=== PATIENT | female | born 1940 | race Caucasian/White ===

== ENCOUNTER 2018-08-29 19:49 | Emergency (ER) | payer MEDICARE, OTHER ==
[~2018-08-29] VITALS: Ht 162.6 cm; Wt 65.9 kg
[~2018-08-29 19:49] MED LIST: ASCO500C15 PO; ASPI-1264 PO; CHOL200052 PO; FERR325T32 PO; PARO40TA PO
[2018-08-29] MEDS ORDERED: CIPR-230 PO (20:10)
[2018-08-29] MEDS ORDERED: METR500T PO (20:10)
[2018-08-29] MEDS ORDERED: PER10325T PO (20:10)
[2018-08-29 20:13] LABS: CLARITY,URINE CLEAR (Clear); COLOR,URINE YELLOW (Yellow); GLUCOSE, URINE NEGATIVE (Neg); KETONES,URINE NEGATIVE (Neg); LEUKOCYTE ESTERASE ,URINE NEGATIVE (Neg); NITRITES, URINE NEGATIVE (Neg); OCCULT BLOOD,URINE NEGATIVE (Neg); PH,URINE 8.5 (4.8-8.0); PROTEIN,URINE NEGATIVE (Neg); UA COLLECTION TYPE VOIDED; UROBILINOGEN,URINE 0.2 E.U/dL (0.2-1.0)
[2018-08-29] MEDS ORDERED: normal saline 1000ML IV soln IV ONE (20:20)
[2018-08-29 21:23] LABS: ALANINE AMINOTRANSFERASE 18 U/L (12-78); ALBUMIN 2.7 G/DL (3.4-5.0); ALBUMIN/GLOBULIN RATIO 0.8 (1.1-1.5); ALKALINE PHOSPHATASE 72 IU/L (46-116); ANION GAP 11 (8-16); ASPARTATE AMINO TRANSFERASE 22 U/L (10-37); BILIRUBIN,TOTAL 0.6 MG/DL (0.1-1.0); BLOOD UREA NITROGEN 9 MG/DL (7-18); BUN/CREATININE RATIO 15.3 (6.6-38.0); CALCIUM 8.1 MG/DL (8.5-10.1); CHLORIDE 104 MMOL/L (99-107); CREATININE 0.59 MG/DL (0.40-0.90); GLUCOSE 127 MG/DL (70-104); POTASSIUM 3.7 MMOL/L (3.5-5.1); SODIUM 139 MMOL/L (135-145); TOTAL CARBON DIOXIDE 23.8 MMOL/L (24-32); TOTAL PROTEIN 6.3 G/DL (6.4-8.2); eGFR > 90 ML/MIN
[2018-08-29 21:24] VITALS: BP 117/78
[2018-08-29 21:27] LABS: MAGNESIUM 2.1 MG/DL (1.5-2.4); TROPONIN I < 0.04 NG/ML (0.0-0.05)
[2018-08-29 21:36] LABS: BASOPHILS % (AUTO) 0.1 % (0-1); EOSINOPHILS # (AUTO) 0.1 X10'3 (0-0.9); EOSINOPHILS % (AUTO) 0.9 % (0-6); HEMATOCRIT 32.1 % (35.0-45.0); HEMOGLOBIN 10.8 g/dl (12.0-16.0); LYMPHOCYTES % (AUTO) 10.5 % (21-51); MEAN CORPUSCULAR HEMOGLOBIN 31.6 PG (27.0-31.0); MEAN CORPUSCULAR HGB CONC 33.6 % (33.0-36.5); MEAN CORPUSCULAR VOLUME 93.8 FL (78-98); MEAN PLATELET VOLUME 8.2 FL (7.4-10.4); MONOCYTES # (AUTO) 0.7 X10'3 (0-0.9); MONOCYTES % (AUTO) 7.8 % (2-12); NEUTROPHILS # (AUTO) 7.6 X10'3 (1.8-7.7); NEUTROPHILS % (AUTO) 80.7 % (42-75); PLATELET COUNT 269 X10'3 (140-440); RED BLOOD COUNT 3.42 X10'6 (4.20-5.60); RED CELL DISTRIBUTION WIDTH 13.4 % (11.5-14.5); WHITE BLOOD COUNT 9.4 X10'3 (4.5-11.0)
[2018-08-29 21:48] LABS: INR 1.2 INR; PARTIAL THROMBOPLASTIN TIME 33 SECONDS (22-32); PROTHROMBIN TIME 12.4 SECONDS (9.0-12.0)
== END 2018-08-29 22:08 | disposition home or self-care (01) ==
LOC: ER 19:50
DX: R30.0 Dysuria (principal); R39.15 Urgency of urination; R35.0 Frequency of micturition; R11.0 Nausea; R41.0 Disorientation, unspecified; G89.29 Other chronic pain; Z98.890 Other specified postprocedural states; Z88.1 Allergy status to other antibiotic agents; Z88.8 Allergy status to other drugs, medicaments and biological substances; Z79.82 Long term (current) use of aspirin; Z79.2 Long term (current) use of antibiotics; Z79.899 Other long term (current) drug therapy
CPT/HCPCS: 36415; 71045; 80053; 81003; 83605; 83735; 84145; 84484; 85025; 85610; 85730; 87040; 93005; 99284; J7030

== ENCOUNTER 2018-10-07 11:50 | Inpatient (IN) | payer MEDICARE, OTHER | END 2018-10-09 15:30 | disposition home or self-care (01) | LOC: ER 11:50 → SUR 3N 10-08 11:20 → ED HOLD 16:00 → SUR 3N 16:55 | DX: K57.32 Diverticulitis of large intestine without perforation or abscess without bleeding (principal); K76.0 Fatty (change of) liver, not elsewhere classified ==

== ENCOUNTER 2018-10-13 10:44 | Outpatient (CLI) | payer MEDICARE, OTHER ==
[~2018-10-13 10:44] MED LIST changes: +ASPI-107 PO; -ASPI-1264 PO; +LEVO500T2 PO; +METR-159 PO; +MULT-1085 PO
[2018-10-13] MEDS ORDERED: VITC500T PO (13:49)
[2018-10-13] MEDS ORDERED: RIVA15TA PO (14:23)
== END 2018-10-13 23:59 | disposition home or self-care (01) ==
LOC: VAS 10:44
PROVIDERS: ATTEND Specialist
DX: R60.0 Localized edema (principal); Z96.643 Presence of artificial hip joint, bilateral; Z88.8 Allergy status to other drugs, medicaments and biological substances; Z88.1 Allergy status to other antibiotic agents
CPT/HCPCS: 93971

== ENCOUNTER 2018-10-13 11:37 | Emergency (ER) | payer MEDICARE, OTHER ==
[~2018-10-13] VITALS: Ht 162.6 cm; Wt 66.8 kg
[2018-10-13 12:47] LABS: BASOPHILS % (AUTO) 0.5 % (0-1); EOSINOPHILS # (AUTO) 0.3 X10'3 (0-0.9); HEMATOCRIT 36.6 % (35.0-45.0); HEMOGLOBIN 12.1 g/dl (12.0-16.0); LYMPHOCYTES # (AUTO) 1.9 X10'3 (1.1-4.8); MEAN CORPUSCULAR HEMOGLOBIN 31.2 PG (27.0-31.0); MEAN CORPUSCULAR VOLUME 94.3 FL (78-98); MEAN PLATELET VOLUME 7.9 FL (7.4-10.4); MONOCYTES # (AUTO) 0.7 X10'3 (0-0.9); MONOCYTES % (AUTO) 7.8 % (2-12); NEUTROPHILS # (AUTO) 5.7 X10'3 (1.8-7.7); NEUTROPHILS % (AUTO) 66.7 % (42-75); PLATELET COUNT 340 X10'3 (140-440); RED BLOOD COUNT 3.88 X10'6 (4.20-5.60); RED CELL DISTRIBUTION WIDTH 14.3 % (11.5-14.5); WHITE BLOOD COUNT 8.5 X10'3 (4.5-11.0)
[2018-10-13 13:03] LABS: ALANINE AMINOTRANSFERASE 21 U/L (12-78); ALBUMIN 3.2 G/DL (3.4-5.0); ALBUMIN/GLOBULIN RATIO 0.9 (1.1-1.5); ALKALINE PHOSPHATASE 79 IU/L (46-116); ANION GAP 7 (8-16); ASPARTATE AMINO TRANSFERASE 18 U/L (10-37); BILIRUBIN,TOTAL 0.2 MG/DL (0.1-1.0); BLOOD UREA NITROGEN 22 MG/DL (7-18); BUN/CREATININE RATIO 28.2 (6.6-38.0); CALCIUM 9.2 MG/DL (8.5-10.1); CHLORIDE 102 MMOL/L (99-107); CREATININE 0.78 MG/DL (0.40-0.90); GLUCOSE 121 MG/DL (70-104); POTASSIUM 4.3 MMOL/L (3.5-5.1); SODIUM 140 MMOL/L (135-145); TOTAL CARBON DIOXIDE 31.2 MMOL/L (24-32); TOTAL PROTEIN 6.7 G/DL (6.4-8.2); eGFR 72 ML/MIN
[2018-10-13 13:17] LABS: PARTIAL THROMBOPLASTIN TIME 26 SECONDS (22-32); PROTHROMBIN TIME 10.6 SECONDS (9.0-12.0)
--- NOTE | 2018-10-13 13:20 | NUR ---
PATIENT UP TO BSC: VOIDED ABOUT 300 ML URINE AND LARGE SOFT FORMED BROWN BM
[2018-10-13] MEDS ORDERED: VITC500T PO (13:49)
[2018-10-13 14:00] VITALS: BP 127/52
[2018-10-13] MEDS ORDERED: RIVA15TA PO (14:23)
== END 2018-10-13 18:05 | disposition home or self-care (01) ==
LOC: ER 11:38
DX: I82.491 Acute embolism and thrombosis of other specified deep vein of right lower extremity (principal); G89.29 Other chronic pain; M19.90 Unspecified osteoarthritis, unspecified site; Z88.5 Allergy status to narcotic agent; Z88.1 Allergy status to other antibiotic agents; Z88.8 Allergy status to other drugs, medicaments and biological substances; Z79.82 Long term (current) use of aspirin; Z79.899 Other long term (current) drug therapy
CPT/HCPCS: 36415; 80053; 85025; 85610; 85730; 99283

== ENCOUNTER 2018-12-26 09:55 | Outpatient (CLI) | payer MEDICARE, OTHER ==
[~2018-12-26 09:55] MED LIST changes: -ASCO500C15 PO; -LEVO500T2 PO; -METR-159 PO; +RIVA15TA PO; +VITC500T PO
== END 2018-12-26 23:59 | disposition home or self-care (01) ==
LOC: VAS 09:55
PROVIDERS: ATTEND Specialist
DX: I82.409 Acute embolism and thrombosis of unspecified deep veins of unspecified lower extremity (principal); Z86.718 Personal history of other venous thrombosis and embolism; Z96.643 Presence of artificial hip joint, bilateral; Z96.651 Presence of right artificial knee joint; Z79.82 Long term (current) use of aspirin
CPT/HCPCS: 93970

== ENCOUNTER 2019-02-27 13:30 | Outpatient (CLI) | payer MEDICARE, OTHER | END 2019-02-27 23:59 | disposition home or self-care (01) | LOC: VAS 13:30 | PROVIDERS: ATTEND Family Medicine | DX: I82.890 Acute embolism and thrombosis of other specified veins (principal) | CPT/HCPCS: 93971 ==

== ENCOUNTER 2021-05-04 07:56 | Inpatient (IN) | payer MEDICARE, BC ==
[2021-04-27 15:17] LABS: BASOPHILS # (AUTO) 0.1 X10'3 (0-0.2); BASOPHILS % (AUTO) 1.7 % (0-1); EOSINOPHILS # (AUTO) 0.2 X10'3 (0-0.9); EOSINOPHILS % (AUTO) 3.5 % (0-6); LYMPHOCYTES % (AUTO) 33.5 % (21-51); MEAN CORPUSCULAR HEMOGLOBIN 31.3 PG (27.0-31.0); MEAN CORPUSCULAR HGB CONC 33.3 g/dL (33.0-36.5); MEAN PLATELET VOLUME 8.3 FL (7.4-10.4); MONOCYTES # (AUTO) 0.5 X10'3 (0-0.9); MONOCYTES % (AUTO) 8.6 % (2-12); NEUTROPHILS # (AUTO) 3.1 X10'3 (1.8-7.7); NEUTROPHILS % (AUTO) 52.7 % (42-75); PRE OP HEMATOCRIT 39.2 % (35.0-45.0); PRE OP PLATELET COUNT 230 X10'3 (140-440); RED BLOOD COUNT 4.17 X10'6 (4.20-5.60); RED CELL DISTRIBUTION WIDTH 13.9 % (11.5-14.5)
[2021-04-27 15:29] LABS: PRE OP PROTIME 10.3 SECONDS (9.0-12.0)
[2021-04-27 15:33] LABS: ALBUMIN 2.4 G/DL (3.4-5.0); ALBUMIN/GLOBULIN RATIO 0.6 (1.1-1.5); ALKALINE PHOSPHATASE 87 IU/L (46-116); BLOOD UREA NITROGEN 25 MG/DL (7-18); BUN/CREATININE RATIO 26.3 (6.6-38.0); CALCIUM 8.2 MG/DL (8.5-10.1); CHLORIDE 106 MMOL/L (99-107); CREATININE 0.95 MG/DL (0.40-0.90); PRE OP ALT 19 U/L (30-65); PRE OP ANION GAP 7 (8-16); PRE OP AST 18 U/L (10-37); PRE OP BILIRUB, TOTAL 0.3 MG/DL (0.0-1.0); PRE OP GLUCOSE 96 MG/DL (70-104); PRE OP SODIUM 143 MMOL/L (135-145); TOTAL CARBON DIOXIDE 30.2 MMOL/L (24-32); TOTAL PROTEIN 6.6 G/DL (6.4-8.2); eGFR 57 ML/MIN
[2021-05-04] VITALS (17 sets, daily range): BP systolic 102–149; BP diastolic 62–81
[~2021-05-04] VITALS: Ht 162.6 cm; Wt 62.9 kg
[~2021-05-04 07:56] MED LIST changes: -ASPI-107 PO; +CALC-159 PO; -CHOL200052 PO; +DOCUMENT DATE & TIME OF BETA-BLOCKER PO ONE; -FERR325T32 PO; +MELO-102 PO; +METO-395 PO; -MULT-1085 PO; -PARO40TA PO; +PARO40TA4 PO; +POTA10CA44 PO; -RIVA15TA PO; -VITC500T PO; +ceFOXitin 2GM-NS 100mL ADDvant 100 ML IV ONE; +famotidine 20mg tablet PO ONE; +ringers solution, lacted 1,000 ML IV SCH
[2021-05-04] MEDS ORDERED: PARO10TA85 PO (08:58)
[2021-05-04] MEDS ORDERED: meperidine/PF 25mg/ml syringe IV PRN ×3 (11:15)
[2021-05-04] MEDS ORDERED: ondansetron/PF 4mg/2ml inj IV PRN (11:15)
[2021-05-04] MEDS ORDERED: ringers solution, lacted 1,000 ML IV SCH (11:15)
[2021-05-04] MEDS ORDERED: morphine 4 MG/ML inj SYRINge IV PRN (11:15)
[2021-05-04] MEDS ORDERED: proCHLORperazine 10 MG/2 ml inj IV PRN (11:15)
[2021-05-04] MEDS ORDERED: morphine 2 MG/ML inj. syringe IV PRN (11:15)
[2021-05-04] MEDS ORDERED: neostigmine methylsulfate 1 MG/ML 10ml vial ONE (11:35)
[2021-05-04] MEDS ORDERED: sevoflurane 250ml liquid IH ONE (11:35)
[2021-05-04] MEDS ORDERED: glycopyrrolate 0.2mg/ml inj ONE (11:35)
[2021-05-04] MEDS ORDERED: fentaNYL/PF 50MCG/1 ML 2ML syringe ONE ×2 (11:48→12:10)
[2021-05-04] MEDS ORDERED: midazolam 1 mg/ML 2ml injection ONE (11:48)
[2021-05-04] MEDS ORDERED: rocuronium 10mg/ml inj IV ONE (12:00)
[2021-05-04] MEDS ORDERED: LIDOcaine 2% (20mg/ml) 5ml vial ONE (12:00)
[2021-05-04] MEDS ORDERED: propofol inj 20 ML IV ONE (12:00)
[2021-05-04] MEDS ORDERED: ondansetron/PF 4mg/2ml inj ONE (12:01)
[2021-05-04] MEDS ORDERED: dexamethasone sod phosphate 4mg/ml inj. ONE (12:01)
[2021-05-04] MEDS ORDERED: ePHEDrine 50MG/ML INJ. ONE (12:07)
[2021-05-04] MEDS ORDERED: albumin (Human) 5% 250ml 250 ML IV ONE (12:07)
[2021-05-04] MEDS ORDERED: BUPIVACAINE liposomal/PF 13.3 MG/ML vial IM ONE (13:16)
[2021-05-04] MEDS ORDERED: BUPIVAcaine/PF 2.5mg/ml (0.25%) 10ml vial ONE (13:16)
[2021-05-04] MEDS ORDERED: BUPIVAcaine 0.5% inj/PF 30 ML ONE (13:16)
[2021-05-04] MEDS ORDERED: acetaminophen 1,000mg/100ml IV 100 ML IV ONE (13:29)
--- NOTE | 2021-05-04 15:12 | NUR ---
Report called to receiving nurse. Transferred via BED Belongings . Special Issues communicated to receiving nurse. AWAKE AND ORIENTED. VITALS STABLE. DRESSING DI. STATES PAIN IMPROVING. TO SURGICAL RM 355B AT THIS TIME.
[2021-05-04] MEDS: gabapentin 400mg capsule PO SCH (16:55)
[2021-05-04] MEDS: HYDROmorphone inj. 0.5 MG/0.5 ML DISP.SYRIN IV PRN (16:56)
[2021-05-04] MEDS: ceFOXitin inj 1,000 MG in normal saline 100ml IV soln 100 ML IV SCH (17:25)
[2021-05-04] MEDS: potassium CL 20mEq in D5-1/2NS 1,000 ML IV SCH ×2 (17:25→22:00)
[2021-05-04] MEDS ORDERED: CALC-1051 PO (17:49)
[2021-05-04] MEDS ORDERED: POTA10CA44 PO (17:49)
[2021-05-04] MEDS ORDERED: MELO-102 PO (17:49)
--- NOTE | 2021-05-04 18:55 | NUR ---
Problems reprioritized. Patient report given, questions answered & plan of care reviewed with Horace JOHNSON.
[2021-05-05] VITALS: BP 109/69
[2021-05-05] MEDS: gabapentin 400mg capsule PO SCH ×4 (00:35→23:24)
[2021-05-05] MEDS: ceFOXitin inj 1,000 MG in normal saline 100ml IV soln 100 ML IV SCH (00:36)
[2021-05-05] MEDS: HYDROcodone/acetaminophen 5mg/325mg tablet PO PRN ×3 (01:13→15:42)
[2021-05-05] MEDS: potassium CL 20mEq in D5-1/2NS 1,000 ML IV SCH ×4 (06:00→23:26)
[2021-05-05 06:30] VITALS: BP 91/55
--- NOTE | 2021-05-05 06:30 | NUR ---
Patient in room [facility]. I have received report from ALEX Vu and had the opportunity to ask questions and assume patient care.
--- NOTE | 2021-05-05 07:01 | NUR ---
Patient in room [facility]. I have received report from Thania JOHNSON and had the opportunity to ask questions and assume patient care.
--- NOTE | 2021-05-05 07:03 | NUR ---
Problems reprioritized. Patient report given, questions answered & plan of care reviewed with Lizzette RN.
[2021-05-05 07:16] LABS: BASOPHILS % (AUTO) 0.1 % (0-1); EOSINOPHILS % (AUTO) 0 % (0-6); HEMATOCRIT 38.6 % (35.0-45.0); HEMOGLOBIN 12.4 g/dl (12.0-16.0); LYMPHOCYTES # (AUTO) 1.1 X10'3 (1.1-4.8); LYMPHOCYTES % (AUTO) 6.6 % (21-51); MEAN CORPUSCULAR HEMOGLOBIN 30.8 PG (27.0-31.0); MEAN CORPUSCULAR VOLUME 96.1 FL (78-98); MONOCYTES # (AUTO) 1.2 X10'3 (0-0.9); MONOCYTES % (AUTO) 7.1 % (2-12); NEUTROPHILS # (AUTO) 14.7 X10'3 (1.8-7.7); NEUTROPHILS % (AUTO) 86.2 % (42-75); PLATELET COUNT 204 X10'3 (140-440); RED BLOOD COUNT 4.02 X10'6 (4.20-5.60); RED CELL DISTRIBUTION WIDTH 14.5 % (11.5-14.5)
[2021-05-05 07:49] LABS: ALBUMIN 3.2 G/DL (3.4-5.0); ANION GAP 10 (8-16); BLOOD UREA NITROGEN 14 MG/DL (7-18); BUN/CREATININE RATIO 16.9 (6.6-38.0); CALCIUM 7.9 MG/DL (8.5-10.1); CHLORIDE 106 MMOL/L (99-107); CREATININE 0.83 MG/DL (0.40-0.90); GLUCOSE 124 MG/DL (70-104); POTASSIUM 4.3 MMOL/L (3.5-5.1); SODIUM 139 MMOL/L (135-145); TOTAL CARBON DIOXIDE 23.1 MMOL/L (24-32); eGFR 66 ML/MIN
[2021-05-05] MEDS ORDERED: non-formulary drug (Meloxicam 1 TAB) PO SCH (08:00)
[2021-05-05] MEDS ORDERED: VITAMIN D3 PO SCH (08:00)
[2021-05-05] MEDS ORDERED: POTASSIUM CHLORIDE 99 MG PO SCH (08:00)
[2021-05-05] MEDS: metoprolol succinate 25mg (24-HOUR) SR. Tablet PO SCH (08:00)
[2021-05-05] MEDS ORDERED: CALCIUM CARBONATE PO SCH (08:00)
[2021-05-05] MEDS: PARoxetine 20mg tablet PO SCH (09:22)
[2021-05-05 11:00] VITALS: BP 96/54
--- NOTE | 2021-05-05 18:50 | NUR ---
Problems reprioritized. Patient report given, questions answered & plan of care reviewed with ALEX Vu.
[2021-05-05 20:00] VITALS: BP 96/51
[2021-05-06] VITALS: BP 99/51
--- NOTE | 2021-05-06 03:29 | NUR ---
Patient in room [facility]. I have received report from Carolyn JOHNSON and had the opportunity to ask questions and assume patient care. Addendum: 05/06/21 at 0331 by Brenden Xiong RN Report was from Kal
[2021-05-06 06:04] LABS: BASOPHILS # (AUTO) 0.1 X10'3 (0-0.2); BASOPHILS % (AUTO) 0.4 % (0-1); EOSINOPHILS % (AUTO) 0.3 % (0-6); HEMATOCRIT 36.9 % (35.0-45.0); LYMPHOCYTES # (AUTO) 1.2 X10'3 (1.1-4.8); MEAN CORPUSCULAR HEMOGLOBIN 30.9 PG (27.0-31.0); MEAN CORPUSCULAR HGB CONC 32.6 g/dL (33.0-36.5); MEAN CORPUSCULAR VOLUME 94.8 FL (78-98); MONOCYTES % (AUTO) 7.8 % (2-12); NEUTROPHILS # (AUTO) 10.9 X10'3 (1.8-7.7); NEUTROPHILS % (AUTO) 82.5 % (42-75); PLATELET COUNT 185 X10'3 (140-440); RED BLOOD COUNT 3.89 X10'6 (4.20-5.60); RED CELL DISTRIBUTION WIDTH 14.2 % (11.5-14.5); WHITE BLOOD COUNT 13.2 X10'3 (4.5-11.0)
--- NOTE | 2021-05-06 06:13 | NUR ---
Problems reprioritized. Patient report given, questions answered & plan of care reviewed with Patricia JOHNSON.
[2021-05-06 06:15] LABS: ANION GAP 6 (8-16); BLOOD UREA NITROGEN 7 MG/DL (7-18); BUN/CREATININE RATIO 9.5 (6.6-38.0); CALCIUM 8.1 MG/DL (8.5-10.1); CHLORIDE 105 MMOL/L (99-107); CREATININE 0.74 MG/DL (0.40-0.90); GLUCOSE 134 MG/DL (70-104); SODIUM 136 MMOL/L (135-145); TOTAL CARBON DIOXIDE 24.6 MMOL/L (24-32); eGFR 76 ML/MIN
--- NOTE | 2021-05-06 06:30 | NUR ---
Patient in room [facility]. I have received report from Horace Billingsley RN and had the opportunity to ask questions and assume patient care.
[2021-05-06] MEDS: PARoxetine 20mg tablet PO SCH (07:44)
[2021-05-06] MEDS: enoxaparin 40mg/0.4ml syringe SUBCUT SCH (07:44)
[2021-05-06] MEDS: metoprolol succinate 25mg (24-HOUR) SR. Tablet PO SCH (07:45)
[2021-05-06] MEDS: gabapentin 400mg capsule PO SCH ×3 (07:58→21:12)
[2021-05-06 08:00] VITALS: BP 126/77
[2021-05-06 11:00] VITALS: BP 106/72
--- NOTE | 2021-05-06 12:50 | NUR ---
Pt voiding small amts of urine, "missing" the hat most voids. 1st void was 25cc, w/ pvr = 150 cc. 2nd void was 20cc in hat w/ yellow urine in toilet bowl w/ PVR = 187cc. 3rd void = 100cc collected in hat. Family member at bedside. Pt remains on 1L O2/NC = 95%
[2021-05-06] MEDS: HYDROcodone/acetaminophen 5mg/325mg tablet PO PRN (13:03)
[2021-05-06 18:00] VITALS: BP 115/66
--- NOTE | 2021-05-06 18:15 | NUR ---
Pt c/o nausea. Bowel sounds diminished from earlier in shift, no flatus since early am. Orders received from Dr. Carolina for Zofran IV, IV fluids and change diet to NPO at this time. ALEX Sagastume (Resource RN) to give antiemetic and IV fluids. Oncoming RNHorace, notified.
[2021-05-06] MEDS: potassium CL 20mEq in D5-1/2NS 1,000 ML IV SCH (18:18)
--- NOTE | 2021-05-06 18:20 | NUR ---
Patient report given, questions answered & plan of care reviewed with Horace Billingsley RN.
[2021-05-06] MEDS: ondansetron/PF 4mg/2ml inj IV PRN (18:58)
[2021-05-07] VITALS: BP 135/71
[2021-05-07] MEDS: HYDROmorphone inj. 0.5 MG/0.5 ML DISP.SYRIN IV PRN ×3 (02:13→19:52)
[2021-05-07 05:42] LABS: BASOPHILS % (AUTO) 0.3 % (0-1); EOSINOPHILS # (AUTO) 0.1 X10'3 (0-0.9); EOSINOPHILS % (AUTO) 1.1 % (0-6); HEMATOCRIT 37.6 % (35.0-45.0); HEMOGLOBIN 12.3 g/dl (12.0-16.0); LYMPHOCYTES # (AUTO) 1.1 X10'3 (1.1-4.8); LYMPHOCYTES % (AUTO) 8.1 % (21-51); MEAN CORPUSCULAR HEMOGLOBIN 30.9 PG (27.0-31.0); MEAN CORPUSCULAR HGB CONC 32.8 g/dL (33.0-36.5); MEAN CORPUSCULAR VOLUME 94.3 FL (78-98); MEAN PLATELET VOLUME 8.7 FL (7.4-10.4); MONOCYTES # (AUTO) 0.9 X10'3 (0-0.9); MONOCYTES % (AUTO) 7.2 % (2-12); NEUTROPHILS % (AUTO) 83.3 % (42-75); PLATELET COUNT 213 X10'3 (140-440); RED BLOOD COUNT 3.99 X10'6 (4.20-5.60); RED CELL DISTRIBUTION WIDTH 14.3 % (11.5-14.5); WHITE BLOOD COUNT 13.1 X10'3 (4.5-11.0)
[2021-05-07 06:11] LABS: ALBUMIN 2.7 G/DL (3.4-5.0); ANION GAP 7 (8-16); BLOOD UREA NITROGEN 5 MG/DL (7-18); BUN/CREATININE RATIO 6.8 (6.6-38.0); CALCIUM 8.2 MG/DL (8.5-10.1); CHLORIDE 104 MMOL/L (99-107); CREATININE 0.73 MG/DL (0.40-0.90); GLUCOSE 135 MG/DL (70-104); SODIUM 139 MMOL/L (135-145); TOTAL CARBON DIOXIDE 28.1 MMOL/L (24-32); eGFR 77 ML/MIN
--- NOTE | 2021-05-07 06:39 | NUR ---
Problems reprioritized. Patient report given, questions answered & plan of care reviewed with Lluvia JOHNSON.
--- NOTE | 2021-05-07 06:39 | NUR ---
Patient in room [facility]. I have received report from Horace BALL) ALEX and had the opportunity to ask questions and assume patient care.
[2021-05-07 07:00] VITALS: BP 133/78
[2021-05-07] MEDS: potassium CL 20mEq in D5-1/2NS 1,000 ML IV SCH ×2 (09:01→20:39)
[2021-05-07] MEDS: metoprolol succinate 25mg (24-HOUR) SR. Tablet PO SCH (09:04)
[2021-05-07] MEDS: PARoxetine 20mg tablet PO SCH (09:05)
[2021-05-07] MEDS: enoxaparin 40mg/0.4ml syringe SUBCUT SCH (09:05)
[2021-05-07] MEDS: gabapentin 400mg capsule PO SCH ×3 (09:05→20:39)
[2021-05-07 11:00] VITALS: BP 145/79
--- NOTE | 2021-05-07 18:30 | NUR ---
Problems reprioritized. Patient report given, questions answered & plan of care reviewed with Jose JOHNSON.
[2021-05-07 18:55] VITALS: BP 132/74
[2021-05-08] MEDS: HYDROcodone/acetaminophen 5mg/325mg tablet PO PRN ×2 (00:33→19:48)
--- NOTE | 2021-05-08 06:15 | NUR ---
Patient in room [facility]. I have received report from Jose JOHNSON and had the opportunity to ask questions and assume patient care.
[2021-05-08 06:19] LABS: BASOPHILS # (AUTO) 0.1 X10'3 (0-0.2); BASOPHILS % (AUTO) 0.5 % (0-1); EOSINOPHILS # (AUTO) 0.5 X10'3 (0-0.9); EOSINOPHILS % (AUTO) 4.4 % (0-6); HEMOGLOBIN 12.6 g/dl (12.0-16.0); LYMPHOCYTES # (AUTO) 1.6 X10'3 (1.1-4.8); LYMPHOCYTES % (AUTO) 14.7 % (21-51); MEAN CORPUSCULAR HEMOGLOBIN 31.2 PG (27.0-31.0); MEAN CORPUSCULAR HGB CONC 32.3 g/dL (33.0-36.5); MEAN CORPUSCULAR VOLUME 96.3 FL (78-98); MEAN PLATELET VOLUME 8.8 FL (7.4-10.4); NEUTROPHILS # (AUTO) 7.7 X10'3 (1.8-7.7); NEUTROPHILS % (AUTO) 71.4 % (42-75); PLATELET COUNT 229 X10'3 (140-440); RED BLOOD COUNT 4.04 X10'6 (4.20-5.60); RED CELL DISTRIBUTION WIDTH 14.2 % (11.5-14.5); WHITE BLOOD COUNT 10.7 X10'3 (4.5-11.0)
[2021-05-08 06:23] LABS: ALBUMIN 2.7 G/DL (3.4-5.0); ANION GAP 5 (8-16); BLOOD UREA NITROGEN 3 MG/DL (7-18); CALCIUM 8.4 MG/DL (8.5-10.1); CHLORIDE 107 MMOL/L (99-107); GLUCOSE 109 MG/DL (70-104); SODIUM 139 MMOL/L (135-145); eGFR > 90 ML/MIN
--- NOTE | 2021-05-08 06:35 | NUR ---
Problems reprioritized. Patient report given, questions answered & plan of care reviewed with LUNA. Addendum: 05/08/21 at 0636 by Dom Trejo RN Amended: Links added.
[2021-05-08 07:00] VITALS: BP 121/68
[2021-05-08] MEDS: potassium CL 20mEq in D5-1/2NS 1,000 ML IV SCH (08:47)
[2021-05-08] MEDS: gabapentin 400mg capsule PO SCH ×2 (08:48→13:27)
[2021-05-08] MEDS: metoprolol succinate 25mg (24-HOUR) SR. Tablet PO SCH (08:48)
[2021-05-08] MEDS: PARoxetine 20mg tablet PO SCH (08:48)
[2021-05-08] MEDS: enoxaparin 40mg/0.4ml syringe SUBCUT SCH (08:49)
--- NOTE | 2021-05-08 09:10 | NUR ---
Patient reportedly took her own Benadryl 50mg capsules that was stored in her purse. I checked her little purse in the room's closet and found a bottle of Benadryl. Patient admitted she took it last night so she can sleep. Patient was discouraged self-medicating as it may interact with her current medications she is taking while in the hospital and that it can be dangerous. Patient gave me verbal permission to take her bottle of Benadryl to store into our hospital pharmacy.
[2021-05-08 11:00] VITALS: BP 116/66
--- NOTE | 2021-05-08 18:45 | NUR ---
Problems reprioritized. Patient report given, questions answered & plan of care reviewed with Hemalatha JOHNSON.
--- NOTE | 2021-05-08 19:00 | NUR ---
Patient in room [facility]. I have received report from Zora JOHNSON and had the opportunity to ask questions and assume patient care.
[2021-05-08] MEDS: magnesium hydroxide 30ml (MOM) UD suspension PO SCH (19:46)
[2021-05-08 20:00] VITALS: BP 119/74
[2021-05-08] MEDS ORDERED: magnesium hydroxide 30ml (MOM) UD suspension PO SCH (20:00)
--- NOTE | 2021-05-08 21:00 | NUR ---
Pt wants to wait on 2100 gabapentin because she feels nauseous. Will attempt to administer at a later time.
[2021-05-08] MEDS: HYDROmorphone inj. 0.5 MG/0.5 ML DISP.SYRIN IV PRN (23:59)
[2021-05-09] VITALS: BP 112/59
--- NOTE | 2021-05-09 06:43 | NUR ---
Problems reprioritized. Patient report given, questions answered & plan of care reviewed with Isadora JOHNSON.
[2021-05-09 07:09] LABS: BASOPHILS # (AUTO) 0.1 X10'3 (0-0.2); BASOPHILS % (AUTO) 0.6 % (0-1); EOSINOPHILS # (AUTO) 0.4 X10'3 (0-0.9); EOSINOPHILS % (AUTO) 4.8 % (0-6); HEMATOCRIT 36.9 % (35.0-45.0); HEMOGLOBIN 12.2 g/dl (12.0-16.0); LYMPHOCYTES # (AUTO) 1.3 X10'3 (1.1-4.8); LYMPHOCYTES % (AUTO) 14.3 % (21-51); MEAN CORPUSCULAR HEMOGLOBIN 31.1 PG (27.0-31.0); MEAN CORPUSCULAR HGB CONC 32.9 g/dL (33.0-36.5); MEAN CORPUSCULAR VOLUME 94.5 FL (78-98); MEAN PLATELET VOLUME 8.5 FL (7.4-10.4); MONOCYTES % (AUTO) 11.1 % (2-12); NEUTROPHILS # (AUTO) 6.1 X10'3 (1.8-7.7); NEUTROPHILS % (AUTO) 69.2 % (42-75); PLATELET COUNT 265 X10'3 (140-440); WHITE BLOOD COUNT 8.9 X10'3 (4.5-11.0)
[2021-05-09 07:14] VITALS: BP 111/62
[2021-05-09 07:16] LABS: ALBUMIN 2.5 G/DL (3.4-5.0); ANION GAP 4 (8-16); BLOOD UREA NITROGEN 7 MG/DL (7-18); BUN/CREATININE RATIO 12.3 (6.6-38.0); CALCIUM 8.4 MG/DL (8.5-10.1); CHLORIDE 103 MMOL/L (99-107); CREATININE 0.57 MG/DL (0.40-0.90); GLUCOSE 99 MG/DL (70-104); POTASSIUM 4.1 MMOL/L (3.5-5.1); SODIUM 140 MMOL/L (135-145); TOTAL CARBON DIOXIDE 33.4 MMOL/L (24-32); eGFR > 90 ML/MIN
[2021-05-09] MEDS: PARoxetine 20mg tablet PO SCH (07:52)
[2021-05-09] MEDS: gabapentin 400mg capsule PO SCH ×4 (07:52→21:34)
[2021-05-09] MEDS: metoprolol succinate 25mg (24-HOUR) SR. Tablet PO SCH (07:53)
[2021-05-09] MEDS: magnesium hydroxide 30ml (MOM) UD suspension PO SCH ×2 (07:54→20:00)
[2021-05-09] MEDS: enoxaparin 40mg/0.4ml syringe SUBCUT SCH (07:55)
[2021-05-09 11:00] VITALS: BP 117/69
[2021-05-09] MEDS: HYDROmorphone inj. 0.5 MG/0.5 ML DISP.SYRIN IV PRN ×2 (12:20→21:47)
[2021-05-09] MEDS: ondansetron/PF 4mg/2ml inj IV PRN (12:26)
--- NOTE | 2021-05-09 12:54 | NUR ---
Initial: Pt admit s/p colostomy reversal advanced to full liquids yesterday from initial clear liquids post-op. PO ~50% liquids past 4 days partially meeting needs on restrictive diet. Noted abdominal pain and nausea last night w/ LBM 05/02 7 days constipation likely impacting PO trends. MoM BID started yesterday per EMR; BERNARDA d/w RN regarding additional bowel care if MD agreeable since pt receiving multiple opiate antagonists. May benefit from ONS pending PO hx once current GI symptoms resolve. Will continue to monitor for additional protein/kcal needs this admit. Rec: 1. advance diet as medically indicated to low-residue; encourage PO 2. Once nausea resolves; consider Ensure Enlive TIDWM given prolonged restrictive diet post-op pending further PO trends 3. routine bowel care; 7 days constipation post-op 4. weekly wts Addendum: 05/09/21 at [address] Amended: Links added.
[2021-05-09 18:00] VITALS: BP 101/58
--- NOTE | 2021-05-09 18:56 | NUR ---
Patient given back to Hemalatha Sanchez, All questions answered. CT scan in AM. Pt has no current complaints. Says she is feeling better after mid afternoon episode of nausea, pain.
[2021-05-09] MEDS: diatr meglu/diatrizoate 30ml oral sol.-(3 dose) bottle PO SCH (21:32)
[2021-05-09] MEDS: normal saline 1000ml 1,000 ML IV SCH (21:40)
[2021-05-10] VITALS: BP 106/59
--- NOTE | 2021-05-10 06:54 | NUR ---
Problems reprioritized. Patient report given, questions answered & plan of care reviewed with Amanda JOHNSON.
--- NOTE | 2021-05-10 06:58 | NUR ---
Patient in room [facility]. I have received report from ALEX Penny and had the opportunity to ask questions and assume patient care.
[2021-05-10 07:00] VITALS: BP 118/68
[2021-05-10] MEDS: magnesium hydroxide 30ml (MOM) UD suspension PO SCH ×2 (08:00→21:37)
[2021-05-10] MEDS: gabapentin 400mg capsule PO SCH ×3 (08:00→21:37)
[2021-05-10] MEDS: diatr meglu/diatrizoate 30ml oral sol.-(3 dose) bottle PO SCH ×2 (09:48→18:35)
[2021-05-10 11:00] VITALS: BP 134/71
[2021-05-10] MEDS: normal saline 1000ml 1,000 ML IV SCH ×2 (12:44→22:25)
[2021-05-10] MEDS ORDERED: iohexol 300mg/ml 100ml inj. ONE (12:51)
[2021-05-10] MEDS: PARoxetine 20mg tablet PO SCH (14:36)
[2021-05-10] MEDS: enoxaparin 40mg/0.4ml syringe SUBCUT SCH (14:36)
[2021-05-10] MEDS: metoprolol succinate 25mg (24-HOUR) SR. Tablet PO SCH (14:36)
[2021-05-10] MEDS: HYDROmorphone inj. 0.5 MG/0.5 ML DISP.SYRIN IV PRN (15:34)
--- NOTE | 2021-05-10 18:37 | NUR ---
Problems reprioritized. Patient report given, questions answered & plan of care reviewed with ALEX Mckenzie.
[2021-05-10 19:00] VITALS: BP 144/87
[2021-05-11] VITALS: BP 118/72
[2021-05-11] MEDS: normal saline 1000ml 1,000 ML IV SCH (02:52)
--- NOTE | 2021-05-11 06:16 | NUR ---
Patient in room [facility]. I have received report from ALEX Mckenzie and had the opportunity to ask questions and assume patient care.
[2021-05-11 06:28] LABS: BASOPHILS # (AUTO) 0.1 X10'3 (0-0.2); BASOPHILS % (AUTO) 0.9 % (0-1); EOSINOPHILS # (AUTO) 0.4 X10'3 (0-0.9); EOSINOPHILS % (AUTO) 5.2 % (0-6); HEMATOCRIT 36.5 % (35.0-45.0); LYMPHOCYTES # (AUTO) 1.3 X10'3 (1.1-4.8); LYMPHOCYTES % (AUTO) 15.7 % (21-51); MEAN CORPUSCULAR VOLUME 94.1 FL (78-98); MEAN PLATELET VOLUME 8.2 FL (7.4-10.4); MONOCYTES # (AUTO) 1.1 X10'3 (0-0.9); MONOCYTES % (AUTO) 12.7 % (2-12); NEUTROPHILS # (AUTO) 5.6 X10'3 (1.8-7.7); NEUTROPHILS % (AUTO) 65.5 % (42-75); PLATELET COUNT 317 X10'3 (140-440); RED BLOOD COUNT 3.88 X10'6 (4.20-5.60); RED CELL DISTRIBUTION WIDTH 13.9 % (11.5-14.5); WHITE BLOOD COUNT 8.5 X10'3 (4.5-11.0)
[2021-05-11 06:57] VITALS: BP 141/81
[2021-05-11 07:11] LABS: ALBUMIN 2.5 G/DL (3.4-5.0); ANION GAP 8 (8-16); BLOOD UREA NITROGEN 6 MG/DL (7-18); BUN/CREATININE RATIO 10.2 (6.6-38.0); CALCIUM 7.8 MG/DL (8.5-10.1); CHLORIDE 105 MMOL/L (99-107); CREATININE 0.59 MG/DL (0.40-0.90); GLUCOSE 97 MG/DL (70-104); POTASSIUM 3.6 MMOL/L (3.5-5.1); SODIUM 142 MMOL/L (135-145); TOTAL CARBON DIOXIDE 29.3 MMOL/L (24-32); eGFR > 90 ML/MIN
[2021-05-11] MEDS: PARoxetine 20mg tablet PO SCH (07:32)
[2021-05-11] MEDS: metoprolol succinate 25mg (24-HOUR) SR. Tablet PO SCH (07:32)
[2021-05-11] MEDS: gabapentin 400mg capsule PO SCH (07:32)
[2021-05-11] MEDS: enoxaparin 40mg/0.4ml syringe SUBCUT SCH (07:32)
[2021-05-11] MEDS: magnesium hydroxide 30ml (MOM) UD suspension PO SCH (07:36)
[2021-05-11 11:00] VITALS: BP 126/76
--- NOTE | 2021-05-11 12:53 | NUR ---
Pt discharged to home at 1220, with all belongings, in private vehicle. Discharge instructions and medications reviewed. No new prescriptions ordered. Pt instructed to follow up with Dr Paz in 1-2 weeks, office number provided. Pt instructed to watch for any signs/symptoms of infection and to notify Dr Paz's office with any concerns. Pt stated understanding and willingness to comply with all discharge instructions. IV DC'd, cannula intact. Pt escorted to front lobby via wheelchair by auxiliary staff.
== END 2021-05-11 12:20 | disposition home or self-care (01) | DRG 330 ==
LOC: PAS IN 07:56 → SUR 3N 15:15
PROVIDERS: ADMIT Surgery; ATTEND Surgery
PROC: 0DNW0ZZ Release Peritoneum, Open Approach (ICD-10-PCS; 2021-05-04)
PROC: 3E0T3BZ Introduction of Anesthetic Agent into Peripheral Nerves and Plexi, Percutaneous Approach (ICD-10-PCS; 2021-05-04)
PROC: 3E0T33Z Introduction of Anti-inflammatory into Peripheral Nerves and Plexi, Percutaneous Approach (ICD-10-PCS; 2021-05-04)
PROC: 0DQN0ZZ Repair Sigmoid Colon, Open Approach (ICD-10-PCS; principal; 2021-05-04 11:35)
DX: Z43.3 Encounter for attention to colostomy (principal); K56.7 Ileus, unspecified; N73.6 Female pelvic peritoneal adhesions (postinfective); K57.30 Diverticulosis of large intestine without perforation or abscess without bleeding; Z96.643 Presence of artificial hip joint, bilateral; Z96.651 Presence of right artificial knee joint; F32.9 Major depressive disorder, single episode, unspecified; R33.9 Retention of urine, unspecified
CPT/HCPCS: 36415; 71046; 74176; 80048; 80053; 82948; 85025; 85610; 85730; 86885; 86900; 86901; 87081; 93005; 97161; 97530; A4618; A6253; A6407; A6449; A7000; C1758; C9290; G0378; J0131; J0694; J1100; J1170; J1650; J2001; J2175; J2250; J2405; J2704; J2710; J3010; J3480; J3490; J7030; J7120; P9045; Q9963; Q9967; U0003; U0005

== ENCOUNTER 2021-05-14 10:03 | Emergency (ER) | payer MEDICARE, BC ==
[~2021-05-14] VITALS: Ht 162.6 cm; Wt 65.0 kg
[~2021-05-14 10:03] MED LIST changes: +CALC-1051 PO; -CALC-159 PO; -DOCUMENT DATE & TIME OF BETA-BLOCKER PO ONE; -ceFOXitin 2GM-NS 100mL ADDvant 100 ML IV ONE; -famotidine 20mg tablet PO ONE; -ringers solution, lacted 1,000 ML IV SCH
[2021-05-14 10:13] VITALS: BP 106/63
== END 2021-05-14 18:44 | disposition left against medical advice (07) ==
LOC: ER 10:04
DX: K94.03 Colostomy malfunction (principal); Z53.21 Procedure and treatment not carried out due to patient leaving prior to being seen by health care provider

== ENCOUNTER 2021-09-15 21:35 | Inpatient (IN) | payer MEDICARE, BC ==
[~2021-09-15] VITALS: Ht 162.6 cm; Wt 66.9 kg
[2021-09-15 22:28] LABS: BASOPHILS % (AUTO) 0.9 % (0-1); EOSINOPHILS # (AUTO) 0.1 X10'3 (0-0.9); EOSINOPHILS % (AUTO) 1.6 % (0-6); HEMATOCRIT 38.6 % (35.0-45.0); HEMOGLOBIN 12.9 g/dl (12.0-16.0); LYMPHOCYTES # (AUTO) 0.7 X10'3 (1.1-4.8); LYMPHOCYTES % (AUTO) 14.5 % (21-51); MEAN CORPUSCULAR HEMOGLOBIN 31.2 PG (27.0-31.0); MEAN CORPUSCULAR HGB CONC 33.3 g/dL (33.0-36.5); MEAN CORPUSCULAR VOLUME 93.7 FL (78-98); MEAN PLATELET VOLUME 8.6 FL (7.4-10.4); MONOCYTES # (AUTO) 0.7 X10'3 (0-0.9); MONOCYTES % (AUTO) 15.1 % (2-12); NEUTROPHILS # (AUTO) 3.1 X10'3 (1.8-7.7); NEUTROPHILS % (AUTO) 67.9 % (42-75); PLATELET COUNT 217 X10'3 (140-440); RED BLOOD COUNT 4.12 X10'6 (4.20-5.60); RED CELL DISTRIBUTION WIDTH 14.1 % (11.5-14.5); WHITE BLOOD COUNT 4.6 X10'3 (4.5-11.0)
[2021-09-15 22:39] LABS: ALANINE AMINOTRANSFERASE 18 U/L (12-78); ALBUMIN 3.5 G/DL (3.4-5.0); ALBUMIN/GLOBULIN RATIO 1.2 (1.1-1.5); ALKALINE PHOSPHATASE 73 IU/L (46-116); ANION GAP 7 (8-16); ASPARTATE AMINO TRANSFERASE 17 U/L (10-37); BILIRUBIN,TOTAL 0.2 MG/DL (0.1-1.0); BLOOD UREA NITROGEN 18 MG/DL (7-18); CALCIUM 8.7 MG/DL (8.5-10.1); CHLORIDE 104 MMOL/L (99-107); CREATININE 0.82 MG/DL (0.40-0.90); GLUCOSE 103 MG/DL (70-104); POTASSIUM 3.6 MMOL/L (3.5-5.1); SODIUM 140 MMOL/L (135-145); TOTAL CARBON DIOXIDE 28.8 MMOL/L (24-32); TOTAL PROTEIN 6.4 G/DL (6.4-8.2); eGFR 67 ML/MIN
[2021-09-16] MEDS ORDERED: pantoprazole 40MG/NS 100ML BAG 100 ML IV ONE ×2 (01:45→03:45)
[2021-09-16] MEDS ORDERED: pantoprazole 40MG/D5 100ML BAG 100 ML IV ONE (01:45)
[2021-09-16] MEDS ORDERED: aspirin 81mg tab.chew PO ONE (01:45)
[2021-09-16] MEDS ORDERED: nitroGLYCERIN 0.4mg/hour patch TD ONE (01:45)
[2021-09-16] MEDS ORDERED: NITR100C11 PO (02:18)
[2021-09-16] MEDS ORDERED: ipratropium/albuterol 3ml nebule NEB PRN (02:30)
[2021-09-16] MEDS ORDERED: acetaminophen 650mg rectal suppository RC PRN (02:30)
[2021-09-16] MEDS ORDERED: bisacodyl 10mg suppository rectal RC PRN (02:30)
[2021-09-16] MEDS ORDERED: normal saline 1000ml 1,000 ML IV SCH (02:30)
[2021-09-16] MEDS ORDERED: diphenhydrAMINE 50 mg/ml inj IV PRN (02:30)
[2021-09-16] MEDS ORDERED: magnesium hydroxide 30ml (MOM) UD suspension PO PRN (02:30)
[2021-09-16] MEDS ORDERED: ondansetron 4mg rapidly disintigrating tab PO PRN (02:30)
[2021-09-16] MEDS ORDERED: ondansetron/PF 4mg/2ml inj IV PRN (02:30)
[2021-09-16] MEDS ORDERED: HYDROmorphone inj. 0.5 MG/0.5 ML DISP.SYRIN IV PRN (02:30)
[2021-09-16] MEDS ORDERED: diphenhydrAMINE 25mg capsule PO PRN (02:30)
[2021-09-16] MEDS ORDERED: acetaminophen 325mg tablet PO PRN ×2 (02:30)
[2021-09-16] MEDS ORDERED: mag hydrox/Alum hydrox/simeth 30ml oral suspension PO PRN (02:30)
[2021-09-16] MEDS ORDERED: metoprolol tartrate 1mg/ml inj IV PRN (02:40)
[2021-09-16] MEDS ORDERED: aminophylline 250mg/10ml inj. IV PRN (02:40)
[2021-09-16] MEDS ORDERED: nitroGLYCERIN 0.4mg SUBLingual tab SL PRN (02:40)
[2021-09-16] MEDS ORDERED: regadenoson 0.4mg/5ml syringe IV ONE (02:40)
[2021-09-16 05:41] LABS: APTT 25 SECONDS (22-32); D-DIMER 1.17 MG/L FEU (0-0.50)
[2021-09-16 05:43] LABS: HEMOGLOBIN A1C 5.6 % (4.5-6.2)
[2021-09-16 05:52] LABS: BASOPHILS % (AUTO) 0.7 % (0-1); EOSINOPHILS % (AUTO) 0.8 % (0-6); HEMATOCRIT 36.4 % (35.0-45.0); HEMOGLOBIN 12.3 g/dl (12.0-16.0); LYMPHOCYTES # (AUTO) 1.1 X10'3 (1.1-4.8); LYMPHOCYTES % (AUTO) 26.6 % (21-51); MAGNESIUM 2.2 MG/DL (1.5-2.4); MEAN CORPUSCULAR HEMOGLOBIN 31.5 PG (27.0-31.0); MEAN CORPUSCULAR HGB CONC 33.9 g/dL (33.0-36.5); MEAN CORPUSCULAR VOLUME 92.8 FL (78-98); MEAN PLATELET VOLUME 8.8 FL (7.4-10.4); MONOCYTES # (AUTO) 0.8 X10'3 (0-0.9); NEUTROPHILS # (AUTO) 2.3 X10'3 (1.8-7.7); NEUTROPHILS % (AUTO) 53.9 % (42-75); PHOSPHORUS 3.1 MG/DL (2.3-4.5); PLATELET COUNT 190 X10'3 (140-440); RED BLOOD COUNT 3.92 X10'6 (4.20-5.60); RED CELL DISTRIBUTION WIDTH 14.1 % (11.5-14.5); WHITE BLOOD COUNT 4.2 X10'3 (4.5-11.0)
[2021-09-16] MEDS ORDERED: pantoprazole 40mg Tablet.DR PO SCH (07:30)
[2021-09-16] MEDS ORDERED: levoFLOXACIN-Levaquin 750MG/D5 150 ML IV SCH (08:00)
[2021-09-16] MEDS ORDERED: lisinopril 5mg tablet PO SCH (08:00)
[2021-09-16] MEDS ORDERED: docusate sod 100mg capsule PO SCH (08:00)
[2021-09-16] MEDS ORDERED: heparin, porcine 5000 units/ml vial SQ SCH (08:00)
[2021-09-16] MEDS ORDERED: atorvastatin 20mg tablet PO SCH (08:00)
[2021-09-16] MEDS ORDERED: ALBUTEROL INHALER 1 PUFF/90 MCG INHALER IH PRN (08:15)
[2021-09-16 08:20] VITALS: BP 117/76
[2021-09-16] MEDS ORDERED: aspirin 81mg tab.chew PO SCH (08:30)
[2021-09-16] MEDS ORDERED: LEVO500T90 PO (09:29)
[2021-09-16] MEDS ORDERED: temazepam 15mg capsule PO PRN (21:00)
[2021-09-17] MEDS ORDERED: PARoxetine 10mg tablet PO SCH (08:00)
[2021-09-17] MEDS ORDERED: calcium carbonate/vitamin D3 tablet PO SCH (08:00)
== END 2021-09-16 11:27 | disposition home or self-care (01) | DRG 177 ==
LOC: ER 21:36 → UNDOADMIN 09-16 02:37 → ED HOLD 09-16 02:37 → UNDODISIN 09-16 11:27
PROVIDERS: ADMIT Family Medicine; ATTEND Family Medicine
DX: U07.1 COVID-19 (principal); J12.82 Pneumonia due to coronavirus disease 2019; R07.89 Other chest pain; G89.4 Chronic pain syndrome; F32.A Depression, unspecified; K57.90 Diverticulosis of intestine, part unspecified, without perforation or abscess without bleeding; K21.9 Gastro-esophageal reflux disease without esophagitis; I10 Essential (primary) hypertension; M19.90 Unspecified osteoarthritis, unspecified site; Z87.442 Personal history of urinary calculi; Z90.49 Acquired absence of other specified parts of digestive tract; Z88.8 Allergy status to other drugs, medicaments and biological substances; Z79.899 Other long term (current) drug therapy
CPT/HCPCS: 36415; 71045; 80053; 83036; 83690; 83735; 83880; 84100; 84443; 84484; 85025; 85379; 85610; 85730; 87635; 94760; 96360; 99285; C9113; G0378; J1956; J7030

== ENCOUNTER 2022-06-29 15:03 | Emergency (ER) | payer MEDICARE, BC ==
[~2022-06-29] VITALS: Ht 154.9 cm; Wt 72.0 kg
[~2022-06-29 15:03] MED LIST changes: +LEVO-65 PO; -METO-395 PO
[2022-06-29 15:11] VITALS: BP 120/67
[2022-06-29] MEDS ORDERED: NAPR-56 PO (17:36)
[2022-06-29] MEDS ORDERED: CEPH250T PO (17:36)
[2022-06-29] MEDS ORDERED: cephalexin 250mg capsule PO ONE (17:40)
[2022-06-30] MEDS ORDERED: HYDR-3964 PO (22:08)
== END 2022-06-29 18:13 | disposition home or self-care (01) ==
LOC: ER 15:04
DX: M70.22 Olecranon bursitis, left elbow (principal); Y93.89 Activity, other specified; G89.29 Other chronic pain; F32.A Depression, unspecified; Z88.5 Allergy status to narcotic agent; Z87.442 Personal history of urinary calculi; Z88.8 Allergy status to other drugs, medicaments and biological substances; Z88.1 Allergy status to other antibiotic agents; Z79.899 Other long term (current) drug therapy
CPT/HCPCS: 99283; A6449

== ENCOUNTER 2022-06-30 19:41 | Emergency (ER) | payer MEDICARE, BC ==
[~2022-06-30] VITALS: Ht 162.6 cm; Wt 73.5 kg
[~2022-06-30 19:41] MED LIST changes: +CEPH250T PO; +NAPR-56 PO
[2022-06-30 19:51] VITALS: BP 142/86
[2022-06-30] MEDS ORDERED: LIDOcaine 1% W/epiNEPHrine 1:100,000 20ml vial SQ ONE (20:35)
[2022-06-30] MEDS ORDERED: LIDOCAINE 1%/EPI 1:100,000 inj. 10 ML multi-dose vial SQ ONE (20:35)
[2022-06-30] MEDS ORDERED: HYDROcodone/acetaminophen 10/325mg tab PO ONE (21:25)
[2022-06-30] MEDS ORDERED: HYDR-3964 PO (22:08)
== END 2022-06-30 22:08 | disposition home or self-care (01) ==
LOC: ER 19:42
DX: S01.21XA Laceration without foreign body of nose, initial encounter (principal); W18.39XA Other fall on same level, initial encounter; Y93.89 Activity, other specified; Y92.89 Other specified places as the place of occurrence of the external cause; Y99.8 Other external cause status; S00.83XA Contusion of other part of head, initial encounter
CPT/HCPCS: 12011; 99283; A6258; A6449

== ENCOUNTER 2023-09-10 10:21 | Emergency (ER) | payer BC, MEDICARE ==
[~2023-09-10] VITALS: Ht 162.6 cm; Wt 67.3 kg
[~2023-09-10 10:21] MED LIST changes: -CEPH250T PO; -NAPR-56 PO; +PARO-153 PO; -POTA10CA44 PO; +POTA10CA85 PO
[2023-09-10 11:26] LABS: BILIRUBIN,URINE NEGATIVE (Neg); CLARITY,URINE SLIGHTLY CLOUDY (Clear); COLOR,URINE YELLOW (Yellow); GLUCOSE, URINE NEGATIVE (Neg); KETONES,URINE TRACE mg/dl (Neg); LEUKOCYTE ESTERASE ,URINE TRACE (Neg); NITRITES, URINE POSITIVE (Neg); OCCULT BLOOD,URINE NEGATIVE (Neg); PROTEIN,URINE NEGATIVE (Neg); UROBILINOGEN,URINE 0.2 E.U/dL (0.2-1.0)
[2023-09-10 11:31] LABS: UA COLLECTION TYPE NON-SPECIFIED
[2023-09-10 11:37] LABS: SQUAMOUS EPITHELIAL CELL,UR MODERATE /LPF (FEW); TRANSITIONAL EPI CELLS,URINE MODERATE /HPF
[2023-09-10 11:39] LABS: BACTERIA,URINE 4+ /HPF (Neg); RBC,URINE 0-2 /HPF (0-2); WBC,URINE 0-4 /HPF (0-4)
[2023-09-10 11:41] LABS: MUCUS STRANDS FEW /LPF (Neg)
[2023-09-10] MEDS ORDERED: HYDROcodone/acetaminophen 5mg/325mg tablet PO ONE (11:45)
[2023-09-10] MEDS ORDERED: CEFD300C3 PO (13:23)
[2023-09-10] MEDS ORDERED: NAPR-56 PO (13:23)
[2023-09-10] MEDS ORDERED: CYCL-1 PO (13:23)
[2023-09-10] MEDS ORDERED: CefTRIAXone 1000mg IM Kit (w/lidocaine diluent) IM ONE (13:25)
[2023-09-10] MEDS ORDERED: ketorolac trometh. 30mg/ml inj. IM ONE (13:25)
[2023-09-10 15:07] VITALS: BP 112/72; PULSE 74; RESP 16; TEMP 98.1; O2SAT 99
== END 2023-09-10 14:35 | disposition home or self-care (01) ==
LOC: ER 10:22
DX: S39.012A Strain of muscle, fascia and tendon of lower back, initial encounter (principal); S70.02XA Contusion of left hip, initial encounter; N39.0 Urinary tract infection, site not specified; M25.561 Pain in right knee; G89.29 Other chronic pain; M19.90 Unspecified osteoarthritis, unspecified site; Z88.8 Allergy status to other drugs, medicaments and biological substances; Z88.1 Allergy status to other antibiotic agents; Z79.899 Other long term (current) drug therapy; W19.XXXA Unspecified fall, initial encounter; Z91.81 History of falling; Y93.89 Activity, other specified; Y92.89 Other specified places as the place of occurrence of the external cause; Y99.8 Other external cause status
CPT/HCPCS: 72100; 73502; 81001; 87088; 87186; 96372; 99284; J0696; J1885; 87077

== ENCOUNTER 2024-02-01 16:44 | Emergency (ER) | payer MEDICARE, OTHER ==
[~2024-02-01] VITALS: Ht 162.6 cm; Wt 66.4 kg
[~2024-02-01 16:44] MED LIST changes: +CYCL-1 PO
[2024-02-01 16:50] VITALS: BP 113/77; PULSE 81; RESP 16; TEMP 98; O2SAT 96
[2024-02-01] MEDS ORDERED: METO-395 PO (16:55)
== END 2024-02-01 19:07 | disposition home or self-care (01) ==
LOC: ER 16:44
DX: S00.83XA Contusion of other part of head, initial encounter (principal); M25.551 Pain in right hip; Z88.5 Allergy status to narcotic agent; Z88.8 Allergy status to other drugs, medicaments and biological substances; Z91.041 Radiographic dye allergy status; W19.XXXA Unspecified fall, initial encounter; Y93.89 Activity, other specified; Y92.89 Other specified places as the place of occurrence of the external cause; Y99.8 Other external cause status
CPT/HCPCS: 70450; 73502; 99284

== ENCOUNTER 2025-07-21 05:10 | Emergency (ER) | payer MEDICARE, OTHER ==
[~2025-07-21] VITALS: Ht 162.6 cm; Wt 148.0 kg
[~2025-07-21 05:10] MED LIST changes: -CALC-1051 PO; -CYCL-1 PO; -LEVO-65 PO; -MELO-102 PO; +METO-395 PO; -PARO-153 PO; -POTA10CA85 PO
[2025-07-21 05:14] VITALS: BP 121/80; PULSE 93; RESP 16; TEMP 97.7; O2SAT 95
--- NOTE | 2025-07-21 05:56 | Physician Documentation ---
History of Present Illness ~ Chief Complaint: Anxiety Stated Complaint: ANXIETY Time Seen by MD: 05:29 Primary Medical Doctor: DR ERNST BUSTILLOS HPI Patient presents to the emergency room for evaluation of anxiety and insomnia. She has been working with her primary care doctor regarding generalized anxiety. She has been on paroxetine for years but got a letter in the mail stating that it can cause falls. She is dressed this with her doctor and they work together to wean her off of paroxetine. She reports the incidents of falls has decreased however her anxiety and insomnia I have returned. She has changed to Wellbutrin in his it does not seem to be helping. She has been up all night pacing. Her doctor gave her a prescription refill of paroxetine however she states she began falling again. Denies head strike Medication Reconciliation Allergies: Coded Allergies: oxycodone (Verified Allergy, Unknown, 09/10/23) diazepam (Verified Adverse Reaction, Intermediate, CAUSES PANIC, GETS COMBATIVE, 05/14/21) erythromycin base (Verified Adverse Reaction, Intermediate, SEVERE STOMACH PAIN, 05/14/21) Scheduled Metoprolol Succinate (Metoprolol Succinate), 1 TAB PO DAILY, (Reported) Paroxetine HCl (Paroxetine HCl), 1 TAB PO DAILY, (Reported) Past Medical History Past Medical History: Diverticulitis, Kidney Stones, Chronic Pain, Osteoarthritis, Depression Past Surgical History: orthopedic surgeries Alcohol Use: None Drug Use: none Lives with: Other Lives In: Home Review of Systems ROS All review of systems negative except as per HPI Physical Exam Vital Signs: Temperature: 97.7, Heart Rate: 93, Respiratory Rate: 16, BP: 121/80, Pulse Oximetry: 95, Weight: 148.000 Oxygen Flow Rate: 0 Physical Exam General: Patient is awake, alert, oriented x4 in no acute distress and well appearing.~ Head: Normocephalic and atraumatic. Eyes: Conjunctival normal. EOMI. PERRL. ENT: Mucous membranes moist. Neck: Supple, trachea is midline. Chest: Clear to auscultation bilaterally without rales, rhonchi, or wheezes. There is no accessory muscle use or retractions. Cardiac: RRR without murmurs, gallops, or rubs. Abd: Soft, nondistended, nontender, with normoactive bowel sounds. No guarding, rebound, or rigidity. Progress Results/Orders Results/Orders Vital Signs 07/21/25 05:14 Temp 97.7 Pulse 93 Resp 16 B/P (MAP) 121/80 Pulse Ox 95 O2 Flow Rate 0 Medical Decision Making Additional information obtaine: N/A Findings Patient presents to the emergency room with generalized anxiety and insomnia. She has been seen by her primary care doctor for this. This is difficult case in the light of patient's falling. She has been instructed to call her doctor today to arrange for close follow up that has well as ER precautions regarding hurt herself when falling. In the meantime recommend melatonin for which she states she has a home but has not tried tonight. Differential Dx:Considerations: Include: Alcohol abuse, Anxiety, Bipolar disorder, Conversion disorder, Depression, Encephaloathy, Homicidal, Panic disorder, Personality disorder, Schizophrenia, Substance abuse, Suicidal, Other Departure Disposition: 01 HOME / SELF CARE / HOMELESS Impression: Primary Impression: Anxiety Condition: Stable Discharge Instructions: Generalized Anxiety Disorder, Adult Additional Instructions: Call your doctor today to arrange for follow up. In the meantime try melatonin Referrals: NO PRIMARY CARE PROVIDER (PCP) Signature Scribe Signature: No scribe Attestation: The note accurately reflects work and decisions made by me.Cody Fung MD 07/21/25 05:55 CODY FUNG MD Jul 21, 2025 05:56
== END 2025-07-21 06:16 | disposition home or self-care (01) ==
LOC: ER 05:11
DX: F41.9 Anxiety disorder, unspecified (principal); F32.A Depression, unspecified; G47.00 Insomnia, unspecified; M19.90 Unspecified osteoarthritis, unspecified site; Z88.1 Allergy status to other antibiotic agents; Z88.5 Allergy status to narcotic agent
CPT/HCPCS: 99282

== ENCOUNTER 2025-07-25 21:34 | Observation (INO) | payer MEDICARE, OTHER ==
[~2025-07-25] VITALS: Ht 162.6 cm; Wt 66.0 kg
--- NOTE | 2025-07-25 22:00 | Physician Documentation ---
History of Present Illness ~ Chief Complaint: Ingestion Error Stated Complaint: OVERDOSE-MEDICATION Time Seen by MD: 21:53 Primary Medical Doctor: DR ERNST BUSTILLOS HPI 85-year-old female, history of anxiety, who presents with symptoms after taking too many of her medications She tells me that she is on Wellbutrin. She felt like it was not working so she took extra doses. She says she took 350 mg doses today. She also took an Advil p.m.. She says she did this because she was feeling anxious and wanted to feel better. She denies trying to harm herself. Currently she reports feeling nauseous. She also feels unsteady on her feet. She reports having a fall in the last couple of days, and reports pain in her left hip and pelvis region. She has been able to walk hand bear weight on the left leg. No chest pain or shortness of breath. No abdominal pain. No vomiting. Medication Reconciliation Allergies: Coded Allergies: oxycodone (Verified Allergy, Unknown, 09/10/23) diazepam (Verified Adverse Reaction, Intermediate, CAUSES PANIC, GETS COMBATIVE, 05/14/21) erythromycin base (Verified Adverse Reaction, Intermediate, SEVERE STOMACH PAIN, 05/14/21) Scheduled Metoprolol Succinate (Metoprolol Succinate), 1 TAB PO DAILY, (Reported) Paroxetine HCl (Paroxetine HCl), 1 TAB PO DAILY, (Reported) Past Medical History Past Medical History: Diverticulitis, Kidney Stones, Chronic Pain, Osteoarthritis, Depression Past Surgical History: orthopedic surgeries Alcohol Use: None Drug Use: none Lives with: Other Lives In: Home Review of Systems Constitutional: Denies: fever Gastrointestinal: Reports: nausea Physical Exam Vital Signs: Temperature: 97.2, Source: Temporal, Heart Rate: 89, Respiratory Rate: 20, BP: 155/88, Pulse Oximetry: 98, Weight: 66.000 Oxygen Flow Rate: 0 Physical Exam General: This is an alert elderly female, friend at bedside HEENT: Atraumatic, oropharynx is moist. Pupils are 3 mm Heart: Regular rate and rhythm, normal-appearing peripheral perfusion Lungs: normal work of breathing, normal oxygen saturation on room air Abdomen: Soft, nondistended, nontender all quadrants Back: No reproducible tenderness on palpation of the lumbar spine or paralumbar muscles. Extremities: Warm and well-perfused Left lower extremity: The patient has mild generalized tenderness on palpation of the left hip and buttocks region Neuro: Alert and oriented Psychiatric: Appears mildly anxious, but otherwise is cooperative Progress Results/Orders Results/Orders Orders - LISBETH CARROLL MD Ekg/Acs Symptoms, 12 Hr (07/25/25 ) Ekg/Acs Symptoms, 6 Hr (07/25/25 ) Urinalysis, Cult If Indicated (07/25/25 21:53) Page Hospitalist (07/25/25 23:35) Hip Unilateral 2-3 Views (07/25/25 23:35) Completed Orders - LISBETH CARROLL MD Electrocardiogram (07/25/25 ) Salicylate (07/25/25 21:53) Acetaminophen (07/25/25 21:53) Cbc/Diff (07/25/25 21:53) BMP (07/25/25 21:53) Lipase (07/25/25 21:53) CMP (07/25/25 21:53) Ethanol (07/25/25 22:05) Hip Unilateral 2-3 Views (07/25/25 23:35) Electrocardiogram (07/26/25 00:16) Vital Signs 07/25/25 07/25/25 21:37 23:19 Temp 97.2 Pulse 89 Resp 20 15 B/P (MAP) 155/88 Pulse Ox 98 O2 Flow Rate 0 Laboratory Tests Test 07/25/25 22:05 White Blood Count 6.2 Red Blood Count 4.53 Hemoglobin 14.2 Hematocrit 42.2 Mean Corpuscular Volume 93.1 Mean Corpuscular Hemoglobin 31.3 H Mean Corpuscular Hemoglobin Concent 33.6 Red Cell Distribution Width 14.1 Platelet Count 250 Mean Platelet Volume 8.3 Neutrophils (%) (Auto) 70.6 Lymphocytes (%) (Auto) 19.2 L Monocytes (%) (Auto) 7.7 Eosinophils (%) (Auto) 1.6 Basophils (%) (Auto) 0.9 Neutrophils # (Auto) 4.4 Lymphocytes # (Auto) 1.2 Monocytes # (Auto) 0.5 Eosinophils # (Auto) 0.1 Basophils # (Auto) 0.1 CBC Comment Sodium Level 143 Potassium Level 3.5 Chloride Level 105 Carbon Dioxide Level 27.5 Anion Gap 11 Blood Urea Nitrogen 12 Creatinine 0.71 Estimated GFR/1.73 m2 79 BUN/Creatinine Ratio 16.9 Glucose Level 128 H Calcium Level 9.4 Total Bilirubin 0.7 Aspartate Amino Transf (AST/SGOT) 19 Alanine Aminotransferase (ALT/SGPT) 16 Alkaline Phosphatase 90 Total Protein 7.4 Albumin 4.3 Globulin 3.1 Albumin/Globulin Ratio 1.4 Lipase 27 Chemistry Comments Salicylates Level 0.3 L Acetaminophen Level < 2.0 L Ethyl Alcohol Level < 10 EKG/XRAY/CT/US/VASC/MRI EKG : Additional Comment I personally interpreted the EKG and this shows: Sinus rhythm, rate 79, QTC 494, QRS 135 Bone/Soft Tissue X-Ray (Ext.) : Additional Comment I personally interpreted the x-ray, and it shows: No hip fracture, dislocation, or pelvic fracture Consults/PCP Consults/PCP : Additional Comment Consult: Poison center consulted for recommendations: ASSESS CARDIAC FOR 24 HRS WITH SERIAL EKG'S QTC>500 REFER TO ACLS,QRS>120 RECCOMMEND BI-CARB, SEIZURES USE BENZOS FOR TX,CHECK TYLENOL ASA LEVELS TX NEEDED Consult: I spoke to the internal medicine service, for admission in the hospital Medical Decision Making Additional information obtaine: N/A Findings na Differential Dx:Considerations: Include: Anxiety, Depression, Drug Overdose- Accidental, Drug Overdose-Intentional, Suicidal attempt Additional Comment The patient presents after taking too many doses of her Wellbutrin. She also reports pain in her left hip after a fall yesterday. X-ray shows no fracture. Poison Center was contacted regarding her overdose. Labs and her workup overall are unremarkable except that her QRS is slightly prolonged on her EKG. However, this seems like it could be a chronic change. An EKG was repeated 2 hours later and there was no worsening of the QRS. Poison Center was contacted for further recommendations. They recommend admission for observation for 24 hours of telemetry. She will be admitted to the medicine service. Departure Impression: Primary Impression: Overdose of antidepressant Additional Impression: Contusion of left hip Referrals: NO PRIMARY CARE PROVIDER (PCP) Signature Scribe Signature: na Attestation: LISBETH Bishop MD Jul 25, 2025 22:00
--- NOTE | 2025-07-25 22:00 | ELECTROCARDIOGRAPH REPORT ---
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 ELOISA Elise Measurements Intervals [place] Rate: 79 P: 64 MA: 198 QRS: -63 QRSD: 135 T: 74 QT: 430 QTc: 494 Interpretive Statements Sinus rhythm Nonspecific IVCD with LAD Left ventricular hypertrophy Anterior Q waves, possibly due to LVH ST elevation, consider inferior injury Electronically Signed On 07-26-2025 12:58:[address] ELOISA Elise Please click the below link to view image of tracing.
[2025-07-25 22:14] LABS: MEAN PLATELET VOLUME 8.3 FL (7.4-10.4); RED CELL DISTRIBUTION WIDTH 14.1 % (11.5-14.5)
[2025-07-25 22:27] LABS: CREATININE 0.71 MG/DL (0.40-0.90); TOTAL CARBON DIOXIDE 27.5 MMOL/L (24-32); eCRCL 52 ML/MIN; eGFR 79 ML/MIN
[2025-07-25 22:40] LABS: ETHANOL < 10 MG/DL (<10)
--- NOTE | 2025-07-26 00:22 | ELECTROCARDIOGRAPH REPORT ---
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 ELOISA Elise Measurements Intervals [place] Rate: 77 P: 66 IN: 203 QRS: -63 QRSD: 132 T: 76 QT: 414 QTc: 469 Interpretive Statements Sinus rhythm RBBB and LAFB Left ventricular hypertrophy ST elevation, consider inferior injury Electronically Signed On 07-26-2025 12:58:[address] ELOISA Elise Please click the below link to view image of tracing.
--- NOTE | 2025-07-26 00:26 | RADIOLOGY REPORT ---
CLINICAL INDICATION: fall, left hip pain TECHNIQUE: 3 views DI HIP UNILATERAL 2-3 VIEWS Comparison: DI HIP UNILATERAL 2 VIEWS on DOS: 02/01/24, DI HIP UNILATERAL 2 VIEWS on DOS: 09/10/23 FINDINGS: Redemonstrated bilateral total hip arthroplasties without evidence of acute hardware complication. No acute fracture. Diffuse osteopenia. Degenerative change of the lumbosacral spine. External urinary catheter. IMPRESSION: No acute fracture or hardware complication of the pelvis or hips.
[2025-07-26] MEDS ORDERED: magnesium Cl slow-release 64mg tablet PO PRN (01:30)
[2025-07-26] MEDS ORDERED: magnesium sulf-water 2g/50mL 50 ML IV PRN (01:30)
[2025-07-26] MEDS ORDERED: magnesium sulf-water 4G/100mL 100 ML IV PRN (01:30)
[2025-07-26] MEDS ORDERED: potassium Cl 20 mEq SR tablet PO PRN (01:30)
[2025-07-26] MEDS ORDERED: potassium Cl 40MEQ/1/2NS 520ml 520 ML IV PRN (01:30)
[2025-07-26] MEDS: sodium bicarbonate (8.4%) 1 mEq/ml syringe IV ONE ×2 (01:45→03:10)
--- NOTE | 2025-07-26 01:46 | HISTORY AND PHYSICAL-Residence ---
History & Physical Providers to CC Resident Creating Document: LUIS FELIPE AHMADI RES CC: NARENDRA HYDE MD ~ History of Present Illness Primary Medical Doctor: DR ERNST BUSTILLOS Reason for Admit\Complaint: Wellbutrin overdose History of Present Illness 85-year-old female with past medical history of depression/anxiety, who presented to the ER after she took extra doses of p.o. Wellbutrin. Patient stated she was started on Wellbutrin for anxiety/depression 2-3 weeks ago. She usually takes Wellbutrin ER 150 mg once a day in the morning. on 07/26 morning she took her usual dose but however as she was feeling anxious she took another dose of 150 mg in the noon around 12:00 p.m., and she took another dose in the evening at around 4:00 p.m. she took a total of 450 mg on 07/26. She said she is not feeling anxious currently. However she is worried about the extra dose and hence she came to the ER. She denies chest pain, palpitations, lightheadedness/dizziness, visual symptoms, nausea, vomitings. She had no previous history of seizures She was previously on paroxetine for more than 10 years for anxiety/depression. 2-3 weeks ago paroxetine was weaned off and she was having recurrent falls which were thought to be secondary to paroxetine. Allergies: Coded Allergies: oxycodone (Verified Allergy, Unknown, 09/10/23) diazepam (Verified Adverse Reaction, Intermediate, CAUSES PANIC, GETS COMBATIVE, 05/14/21) erythromycin base (Verified Adverse Reaction, Intermediate, SEVERE STOMACH PAIN, 05/14/21) Home Medications Home Medications Active Reported Metoprolol Succinate 25 Mg Tab.sr.24h 1 Tab PO DAILY Paroxetine HCl 40 Mg Tablet 1 Tab PO DAILY Past Medical History Past Medical History Anxiety/depression She was previously on metoprolol 25 mg p.o. for some unknown heart disease. Discontinued medication to years before. She was on follow up with manufacturing production manager Dr. oSsa and Dr. 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 no change in appetite/weight HEENT: No blurring of the vision, No sore throat, epistaxis, tinnitus Cardiovascular: No chest pain/discomfort, palpitations, syncope. No pedal edema Respiratory: No sob, cough,, hemoptysis Gastrointestinal: No abdominal pain, nausea, vomiting. No diarrhea, constipation, melena. Genitourinary: No frquency, urgency, incontinence, nocturia. No dysuria, hematuria Musculoskeletal: No arthralgia, myalgia Endocrine: No fatigue, polydipsia, polyuria. No heat or cold intolerance Neurologic: No headache, vertigo. No weakness, numbness or tingling of extremities, complaining of recurrent falls Psychiatric: Complaining of feeling anxious, history of panic disorder but currently denies any active suicidal ideation Hematologic: No bleeding or bruises Reviewed in full. All negative except for pertinent positives in HPI Constitutional: Denies: fever Gastrointestinal: Reports: nausea Exam Vitals: Vital Signs Date Time Temp Pulse Resp B/P (MAP) Pulse Ox O2 Delivery O2 Flow Rate FiO2 07/26/25 01:00 81 15 152/77 (102) 99 07/25/25 21:37 97.2 0 General: General: Pleasant elderly female, AAO x4, not in apparent distress Head: Normocephalic with an atraumatic Eyes: Pupils- 3mm, reacting to light, conjunctiva- anicteric Nose and throat: No polyps, septum- normal, no mucosal ulcers Neck: Supple, no lymphadenopathy, no carotid bruit Respiratory: No use of accessory muscles of respiration, Bilateral normal vesiscular breath sounds heard. No wheeze, rhochi or creps Cardiac: S1-S2 heard, rythm regular, no gallop/murmur Abdomen: Vertical scars present over the abdomen non distended, no tenderness, no organomegaly, bowel sounds- heard Extremities: no clubbing, no pedal edema, no deformities, peripheral pulses- 2+ Skin: warm and dry, no rash, no purpura Neuro: No focal deficit, gross cranial nerve exam- normal Diagnostic Data Last Recorded Lab Results: 07/25/25220407/25/252204 Advance Care Planning Advanced Care plannin - 30 Minutes (Code status is discussed with her and she opted for DNR) Additional Plan 85-year-old female with past medical history of depression/anxiety, who presented to the ER after she took extra doses of p.o. Wellbutrin. She took total of 450 mg on 07/26, and total of 600 mg in the past 24 hours. Her Usual doses 150 mg once a day. Wellbutrin overdose -initial EKG done showed QRS of 135, QTC of 494, w/ LAFB -repeat EKG done 2 hours later showed QRS of 132, QTC of 469 -reviewed previous EKGs and her last EKG was from 2021 with QRS of 102 and QTC of 438 -she is not on any calcium channel blockers or beta blockers or other antiarrhythmic agents that prolong QRS/QTC. There is no hypokalemia or hypocalcemia. Patient was on paroxetine which can cause QRS/QTc widening however her previous EKGs from 2017 to 2021 did not show any QRS widening even though she was on paroxetine at the time -as the EKG changes were new compared to the previous EKG, spoke to Diamond from poison control, and they recommended bicarb ampule push Plan -50 mEq of bicarb push followed by EKG 20 minutes later -repeat bicarb push of 50-100 meq, until QRS is narrowed down to 120 milliseconds -measure pH and if pH is more than 7.55, stop bicarb and plan for hypertonic saline infusion -contact poison control [phone] for further recommendations regarding hypertonic saline infusion -continue to monitor patient on telemetry for QRS and QT C and arrhythmia -watch for seizures and follow seizure precautions Depression/anxiety -currently patient is not having any suicidal thoughts or panic attacks -in acute anxiety/panic attack, consider benzodiazepine Recurrent falls -patient stated she used to have recurrent falls but that stopped after discontinuing paroxetine. However she had a fall yesterday, where she hit her left hip -x-ray left hip showed no fracture -monitor orthostatic vitals and PT evaluation for any imbalance Code Status: DNR Line/tube: PIV DVT prophylaxis: Lovenox Nutrition: Regular PT: Yes Prognosis: Guarded Disposition: Continue care in PCU, Luis Felipe Ahmadi MD IM PGY-3 resident Date of Service: Jul 26, 2025 Billing Provider: NARENDRA HYDE MD Addendum agree with resident wellbutrin overdose frequent ekg monitoring poison control contacted IM 3 LUIS FELIPE AHMADI, RES Jul 26, 2025 01:46 NARENDRA HYDE MD Jul 26, 2025 03:49
--- NOTE | 2025-07-26 02:17 | ELECTROCARDIOGRAPH REPORT ---
[facility] Test Date: 2025-07-26 Test Time: 02:14:43 Pat Name: CAREY MACIAS Department: [facility]- Patient ID: [facility]-[id number] Room: [place] [address] Gender: F Assurance Assistant: : 1940 Requested By: RUSSELL AHMADI Order Number: [id number] Reading MD: Dr. ELOISA Elise Measurements Intervals [place] Rate: 81 P: 58 RI: 219 QRS: -50 QRSD: 128 T: 75 QT: 414 QTc: 481 Interpretive Statements Sinus rhythm Borderline prolonged RI interval Left atrial enlargement Nonspecific IVCD with LAD Left ventricular hypertrophy Electronically Signed On 07-26-2025 12:58:[address] ELOISA Elise Please click the below link to view image of tracing.
--- NOTE | 2025-07-26 02:19 | ELECTROCARDIOGRAPH REPORT ---
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 ELOISA Elise Measurements Intervals [place] Rate: 81 P: 50 [place]: 197 QRS: -51 QRSD: 131 T: 78 QT: 432 QTc: 502 Interpretive Statements Sinus rhythm Probable left atrial enlargement Nonspecific IVCD with LAD Left ventricular hypertrophy Nonspecific T abnormalities, lateral leads Baseline wander in lead(s) I,aVR,aVL Electronically Signed On 07-26-2025 12:58:[address] ELOISA Elise Please click the below link to view image of tracing.
--- NOTE | 2025-07-26 03:44 | ELECTROCARDIOGRAPH REPORT ---
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 ELOISA Elise Measurements Intervals [place] Rate: 81 P: 64 [place]: 201 QRS: -53 QRSD: 129 T: 88 QT: 401 QTc: 466 Interpretive Statements Sinus rhythm Probable left atrial enlargement LVH with IVCD, LAD and secondary repol abnrm Electronically Signed On 07-26-2025 12:59:[address] ELOISA Elise Please click the below link to view image of tracing.
[2025-07-26 04:00] VITALS: BP 148/88; PULSE 82; RESP 12; TEMP 97.7; O2SAT 97
[2025-07-26 04:42] VITALS: RESP 12; O2SAT 97
[2025-07-26 06:49] VITALS: BP 156/79; PULSE 89; RESP 20; TEMP 98.7; O2SAT 96
[2025-07-26] MEDS ORDERED: WATER FOR INJECTION IV SCH (07:40)
[2025-07-26] MEDS ORDERED: SODIUM CHLORIDE IV SCH (07:40)
[2025-07-26] MEDS ORDERED: STERILE IV SCH (07:40)
[2025-07-26] MEDS: K and/or MAG REPLACEMENT MC SCH (08:00)
[2025-07-26] MEDS: docusate sod 100mg capsule PO SCH (08:33)
[2025-07-26] MEDS: enoxaparin 40mg/0.4ml syringe SUBCUT SCH (08:38)
[2025-07-26 10:13] LABS: CHOL/HDL RATIO 2.4 (0.00-4.99); LDL CHOLESTEROL 83 MG/DL (50-100)
[2025-07-26 10:34] VITALS: BP 125/86; PULSE 88; RESP 18; TEMP 98.7; O2SAT 94
[2025-07-26 10:48] LABS: MEAN PLATELET VOLUME 9.0 FL (7.4-10.4); RED CELL DISTRIBUTION WIDTH 14.2 % (11.5-14.5)
[2025-07-26 10:50] LABS: OXYGEN SATURATION (MIXED VEN) 55.8 % (60-80); PO2 MIXED VENOUS (TEMP COR) 28.1 mmHg (35-46)
[2025-07-26 10:50] LABS: CREATININE 0.57 MG/DL (0.40-0.90); TOTAL CARBON DIOXIDE 24.6 MMOL/L (24-32); eCRCL 65 ML/MIN; eGFR > 90 ML/MIN
[2025-07-26] MEDS: potassium Cl 20 mEq SR tablet PO PRN (11:08)
--- NOTE | 2025-07-26 11:54 | ELECTROCARDIOGRAPH REPORT ---
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 ELOISA Elise Measurements Intervals [place] Rate: 82 P: 59 [place]: 201 QRS: -53 QRSD: 136 T: 87 QT: 338 QTc: 395 Interpretive Statements Sinus rhythm Left bundle branch block Electronically Signed On 07-26-2025 12:49:[address] ELOISA Elise Please click the below link to view image of tracing.
[2025-07-26] MEDS ORDERED: VENL75TA4 PO (12:48)
--- NOTE | 2025-07-26 14:49 | DISCHARGE SUMMARY-Residence ---
Discharge Summary Providers to CC Resident Creating Document: RAZIA HUMPHREY CC: CHERISE ERAZO MD ~ Discharge Summary Admission Diagnosis: BUPROPION TOXICITY Hospital Course DATE OF ADMISSION: 07/25/2025 DATE OF DISCHARGE: 07/26/2025 Discharge Diagnosis\Comment: Bupropion overdose, stable Depression/anxiety Recurrent falls Operations\Procedures: None Consultants: Poison control Complications: None Condition on DC: Stable New Medications: Venlafaxine HCl (Venlafaxine HCl) 75 Mg Tablet 1 TAB PO DAILY for 30 Days, #30 TAB 0 Refills Continued Medications: Metoprolol Succinate (Metoprolol Succinate) 25 Mg Tab.sr.24h 1 TAB PO DAILY Discontinued Medications: Paroxetine HCl (Paroxetine HCl) 40 Mg Tablet 1 TAB PO DAILY Discharge Summary: Patient was admitted with the following HPI: 85-year-old female with past medical history of depression/anxiety, who presented to the ER after she took extra doses of p.o. Wellbutrin. Patient stated she was started on Wellbutrin for anxiety/depression 2-3 weeks ago. She usually takes Wellbutrin ER 150 mg once a day in the morning. on 07/26 morning she took her usual dose but however as she was feeling anxious she took another dose of 150 mg in the noon around 12:00 p.m., and she took another dose in the evening at around 4:00 p.m. she took a total of 450 mg on 07/26. She said she is not feeling anxious currently. However she is worried about the extra dose and hence she came to the ER. She denies chest pain, palpitations, lightheadedness/dizziness, visual symptoms, nausea, vomitings. She had no previous history of seizures She was previously on paroxetine for more than 10 years for anxiety/depression. 2-3 weeks ago paroxetine was weaned off and she was having recurrent falls which were thought to be secondary to paroxetine. Hospital course: Patient was admitted with diagnosis of bupropion overdose. Patient was asymptomatic, however, she was found to have a prolonged QRS on EKG, and in view of normal EKG in 2020, poison control recommended to start patient on bicarbonate boluses and to tele monitor for 24hr. Today, patient was still asym ptomatic, and in view of Ph of 7.5, we held bicarb boluses. In the meantime, EKG remained essentially unchanged. I followed up with poison control today, who given no intention of self harm, and Bupropion subtoxic ingestion (less than 10mg/kg), they recommended no further treatment. Due to faster than expected recovery, patient will be discharged home today. She will follow up with her PCP, psychiatrist and teletray operator. Laboratory Tests Test 07/25/25 22:05 07/26/25 01:48 07/26/25 02:42 07/26/25 05:43 White Blood Count 6.2 X10'3 Red Blood Count 4.53 X10'6 Hemoglobin 14.2 g/dl Hematocrit 42.2 % Mean Corpuscular Volume 93.1 FL Mean Corpuscular Hemoglobin 31.3 PG Mean Corpuscular Hemoglobin Concent 33.6 g/dL Red Cell Distribution Width 14.1 % Platelet Count 250 X10'3 Mean Platelet Volume 8.3 FL Neutrophils (%) (Auto) 70.6 % Lymphocytes (%) (Auto) 19.2 % Monocytes (%) (Auto) 7.7 % Eosinophils (%) (Auto) 1.6 % Basophils (%) (Auto) 0.9 % Neutrophils # (Auto) 4.4 X10'3 Lymphocytes # (Auto) 1.2 X10'3 Monocytes # (Auto) 0.5 X10'3 Eosinophils # (Auto) 0.1 X10'3 Basophils # (Auto) 0.1 X10'3 CBC Comment Sodium Level 143 MMOL/L Potassium Level 3.5 MMOL/L Chloride Level 105 MMOL/L Carbon Dioxide Level 27.5 MMOL/L Anion Gap 11 Blood Urea Nitrogen 12 MG/DL Creatinine 0.71 MG/DL Estimated GFR/1.73 m2 79 ML/MIN BUN/Creatinine Ratio 16.9 Glucose Level 128 MG/DL Calcium Level 9.4 MG/DL Magnesium Level 2.3 MG/DL Total Bilirubin 0.7 MG/DL Aspartate Amino Transf (AST/SGOT) 19 U/L Alanine Aminotransferase (ALT/SGPT) 16 U/L Alkaline Phosphatase 90 IU/L Total Protein 7.4 G/DL Albumin 4.3 G/DL Globulin 3.1 G/DL Albumin/Globulin Ratio 1.4 Lipase 27 U/L Chemistry Comments Salicylates Level 0.3 MG/DL Acetaminophen Level < 2.0 UG/ML Ethyl Alcohol Level < 10 MG/DL Troponin I High Sensitivity 7 ng/L 7 ng/L Troponin I High Sens Percent Delta 0 % Troponin I Hi Sens Absolute Change 0 ng/L Venous Blood pH 7.513 Test 07/26/25 06:13 07/26/25 10:45 White Blood Count 6.2 X10'3 Red Blood Count 4.35 X10'6 Hemoglobin 13.6 g/dl Hematocrit 40.2 % Mean Corpuscular Volume 92.3 FL Mean Corpuscular Hemoglobin 31.2 PG Mean Corpuscular Hemoglobin Concent 33.8 g/dL Red Cell Distribution Width 14.2 % Platelet Count 248 X10'3 Mean Platelet Volume 9.0 FL Neutrophils (%) (Auto) 69.8 % Lymphocytes (%) (Auto) 16.5 % Monocytes (%) (Auto) 10.6 % Eosinophils (%) (Auto) 1.8 % Basophils (%) (Auto) 1.3 % Neutrophils # (Auto) 4.3 X10'3 Lymphocytes # (Auto) 1.0 X10'3 Monocytes # (Auto) 0.7 X10'3 Eosinophils # (Auto) 0.1 X10'3 Basophils # (Auto) 0.1 X10'3 CBC Comment Sodium Level 145 MMOL/L Potassium Level 3.0 MMOL/L Chloride Level 104 MMOL/L Carbon Dioxide Level 24.6 MMOL/L Anion Gap 16 Blood Urea Nitrogen 10 MG/DL Creatinine 0.57 MG/DL Estimated GFR/1.73 m2 > 90 ML/MIN BUN/Creatinine Ratio 17.5 Glucose Level 89 MG/DL Hemoglobin A1c 5.4 % Calcium Level 8.8 MG/DL Total Bilirubin 0.7 MG/DL Aspartate Amino Transf (AST/SGOT) 16 U/L Alanine Aminotransferase (ALT/SGPT) 15 U/L Alkaline Phosphatase 78 IU/L Troponin I High Sensitivity 8 ng/L Troponin I High Sens Percent Delta 14 % Troponin I Hi Sens Absolute Change 1 ng/L Total Protein 6.9 G/DL Albumin 4.0 G/DL Globulin 2.9 G/DL Albumin/Globulin Ratio 1.4 Triglycerides Level 69 MG/DL Cholesterol Level 163 MG/DL LDL Cholesterol 83 MG/DL HDL Cholesterol 68 MG/DL Cholesterol/HDL Ratio 2.4 Thyroid Stimulating Hormone (TSH) 1.99 ulU/ml Chemistry Comments Blood Gas Specimen Type Mixed venous Mixed Venous PO2 (Temp Corrected) 28.1 mmHg Mixed Venous Blood O2 Saturation 55.8 % Discharge physical exam: Vital Signs Date Time Temp Pulse Resp B/P (MAP) Pulse Ox O2 Delivery O2 Flow Rate FiO2 07/26/25 10:34 98.7 88 18 125/86 (99) 94 Room Air 07/25/25 21:37 0 General: awake, alert oriented to place, time, and person HEENT: No pallor present, no icterus, moist mucous membranes Neck: No masses and tenderness Resp: Unlabored. Lungs clear to auscultation bilaterally. Chest: Normal expansion Cardiovascular: Regular Rate and rhythm, normal S1 and S2 without murmur, rub or gallop Abdomen: Soft and nontender, no organomegaly, no guarding and rigidity, bowel sounds present Neuro: No focal weakness in the upper and lower limb muscles, power of the muscles 5/5 bilateral upper and lower extremities, normal reflexes bilaterally. Cranial nerves intact Extremities: No cyanosis,clubbing or edema Skin: Warm and Dry. No lesions Psych: Normal affect and mood Disposition: Patient will be discharged with the following recommendations: - Please stop your welbutrin - Follow up with Dr Vaughn within one week - We started a new medication for your anxiety at a low dose to prevent falls. However, you need to follow up with your psychiatrist as soon as possible, or get a referral from your PCP - Follow up with your teletray operator within two weeks - Please return to the ED if any chest pain, palpitations, shortness of breath, feelings of self-harm, or any other concerning symptoms *Problems/Diagnosis: (1) Overdose by ingestion Status: Acute Total Time Spent on D/C: > 30 Minutes Date of Service: Jul 26, 2025 Billing Provider: CHERISE ERAZO MD, LEONARDO LUIS Jul 26, 2025 14:44
== END 2025-07-26 14:36 | disposition home or self-care (01) ==
LOC: ER 21:34 → UNDOADMIN 07-26 01:33 → PCU 3S 07-26 01:33 → ED HOLD 07-26 01:33 → PCU 3S 07-26 03:59
PROVIDERS: ADMIT Internal Medicine Critical Care Medicine; ATTEND Internal Medicine Critical Care Medicine
DX: T43.291A Poisoning by other antidepressants, accidental (unintentional), initial encounter (principal); S70.02XA Contusion of left hip, initial encounter; F41.9 Anxiety disorder, unspecified; F32.9 Major depressive disorder, single episode, unspecified; Z79.899 Other long term (current) drug therapy; Z98.890 Other specified postprocedural states; W18.39XA Other fall on same level, initial encounter; Y93.89 Activity, other specified; Y92.89 Other specified places as the place of occurrence of the external cause; Y99.8 Other external cause status
CPT/HCPCS: 73502; 80053; 80061; 80329; 82800; 82810; 83036; 83690; 83735; 84443; 84484; 93005; 96372; 96374; 99285; G0378; J3490; 36415; 80320; 85025; 96376; A6258; J1650

== ENCOUNTER 2025-07-28 01:08 | Emergency (ER) | payer MEDICARE, OTHER ==
[~2025-07-28] VITALS: Ht 162.6 cm; Wt 66.0 kg
[~2025-07-28 01:08] MED LIST changes: -PARO40TA4 PO; +VENL75TA4 PO
--- NOTE | 2025-07-28 01:29 | Physician Documentation ---
History of Present Illness ~ Chief Complaint: Urinary Symptoms Stated Complaint: BLADDER INFECTION Time Seen by MD: 01:27 Primary Medical Doctor: DR ERNST BUSTILLOS HPI Patient presents to the emergency room with chief complaint of dysuria that began this afternoon. She took some [id number] azo without effect. No fevers. She was admitted here recently and had a pure wick placed and she feels that may be related to why she is having dysuria. Medication Reconciliation Allergies: Coded Allergies: oxycodone (Verified Allergy, Unknown, 09/10/23) diazepam (Verified Adverse Reaction, Intermediate, CAUSES PANIC, GETS COMBATIVE, 05/14/21) erythromycin base (Verified Adverse Reaction, Intermediate, SEVERE STOMACH PAIN, 05/14/21) Scheduled Metoprolol Succinate (Metoprolol Succinate), 1 TAB PO DAILY, (Reported) Venlafaxine HCl (Venlafaxine HCl), 1 TAB PO DAILY Discontinued Medications Paroxetine HCl (Paroxetine HCl), 1 TAB PO DAILY, (Reported) Past Medical History Past Medical History: Diverticulitis, Kidney Stones, Chronic Pain, Osteoarthritis, Depression Past Surgical History: orthopedic surgeries Alcohol Use: None Drug Use: none Lives with: Other Lives In: Home Physical Exam Vital Signs: Temperature: 97.8, Source: Oral, Heart Rate: 99, Respiratory Rate: 16, BP: 109/72, Pulse Oximetry: 96, Weight: 66.000 Oxygen Flow Rate: 0 Physical Exam General: Patient is awake, alert, oriented x4 in no acute distress Head: Normocephalic and atraumatic. Eyes: Conjunctival normal. EOMI. PERRL. ENT: Mucous membranes moist. Neck: Supple, trachea is midline. Chest: Clear to auscultation bilaterally without rales, rhonchi, or wheezes. There is no accessory muscle use or retractions. Cardiac: RRR without murmurs, gallops, or rubs. Abd: Soft, nondistended, nontender, with normoactive bowel sounds. No guarding, rebound, or rigidity. Back: No CVA tenderness Progress Results/Orders Results/Orders Orders - CODY MERLOS MD Cult Urine + [address] (07/28/25 02:01) Completed Orders - CODY MERLOS MD Ua W/Microscopic, Cult If Ind (07/28/25 01:20) Vital Signs 07/28/25 01:14 Temp 97.8 Pulse 99 Resp 16 B/P (MAP) 109/72 Pulse Ox 96 O2 Flow Rate 0 Laboratory Tests Test 07/28/25 01:20 Urine Specimen Description Cln catch midstream Urine Color [place] Urine Clarity Slightly cloudy Urine pH Urine Specific [place] Urine Protein Urine Glucose (UA) Urine Ketones Urine Occult Blood Urine Nitrite Urine Bilirubin Urine Urobilinogen Urine Leukocyte Esterase Urine RBC 3-10 Urine WBC 30-50 H Urine Squamous Epithelial Cells Few Urine Transitional Epithelial Cells Few Urine Bacteria Few Urine Mucus Few Urine Culture Indicated Indicated Volume Urine Centrifuged 10 ml Urine Comment Medical Decision Making Additional information obtaine: old records Findings Patient presents to the emergency room with chief complaint of dysuria. Differentials include but are not limited to urinary tract infection, interstitial cystitis, dehydration, abrasion therefore urinalysis ordered which was positive for urinary tract infection and we will treat her accordingly Urinary Diff Dx:Considerations: Include: AAA, , Aortic dissection, Appendicitis, Bowel obstruction, Cholelithiasis, Choleangitis, DJD, Ectopic , Hepatitis, HNP, Impaction, Intrauterine , Musculoskeletal pain, Ovarian torsion, Pancreatitis, PID, Post-Op complication, Pyelonephritis, Renal failure, Strain, Urinary Obstruction, Urolithiasis, Urinary retention, UTI, Vaginitis, Other Genital Diff Dx:Considerations: Include: -Complete, - Incomplete, -Inevitable, Ablortion-Missed, -Threatened, Abruptio placentae, Bartholin abscess, Bartholin cyst, Blood loss anemia, Constipation, Cervicitis, Dsymenorrhea, Ectopic , Foreign body, Hormonal, Hidradenitis suppurativa, Intrauterine , Menorrhagia, Menometrorrhagia, Menstrual bleeding, Myomatous uterus, Perianal abscess, Physiologic discharge, Pinworms, PID, Placenta previa, , Precipitous Hct, Trauma, UTI, Vaginitis(osis)-Atrophic, Vaginitis, Vaginitis(osis)-Bacterial, Vaginitis(osis)- Candidal, Vaginitis(osis)-Contact, Vaginitis(osis)-Herpes, Vaginitis(osis)- Trich., Other Departure Disposition: HOME / SELF CARE / HOMELESS Impression: Primary Impression: Acute urinary tract infection Condition: Stable Discharge Instructions: Urinary Tract Infection, Adult Referrals: NO PRIMARY CARE PROVIDER (PCP) Prescriptions Cephalexin*Monohydrate* (Keflex*) 500 Mg Capsule 1 CAP PO Q12H for 10 Days, #20 CAP Prov: CODY MERLOS MD 07/28/25 Signature Scribe Signature: No scribe Attestation: The note accurately reflects work and decisions made by me.Cody Merlos MD 07/28/25 02:07 CODY MERLOS MD Jul 28, 2025 01:29
[2025-07-28 01:50] LABS: UA COLLECTION TYPE CLN CATCH MIDSTREAM
[2025-07-28 02:01] LABS: MUCUS STRANDS FEW /LPF (Neg); SQUAMOUS EPITHELIAL CELL,UR FEW /LPF (FEW)
[2025-07-28] MEDS ORDERED: CEPH-585 PO (02:06)
[2025-07-28] MEDS: CefTRIAXone 1000mg IM Kit (w/lidocaine diluent) IM ONE (02:10)
[2025-07-28 02:29] VITALS: BP 111/70; PULSE 98; RESP 18; TEMP 98.6; O2SAT 99
== END 2025-07-28 02:31 | disposition home or self-care (01) ==
LOC: ER 01:08
DX: N39.0 Urinary tract infection, site not specified (principal); M19.90 Unspecified osteoarthritis, unspecified site; F32.A Depression, unspecified; G89.29 Other chronic pain; Z88.5 Allergy status to narcotic agent; Z88.1 Allergy status to other antibiotic agents; Z79.899 Other long term (current) drug therapy; Z87.442 Personal history of urinary calculi; Z88.8 Allergy status to other drugs, medicaments and biological substances; Z98.890 Other specified postprocedural states
CPT/HCPCS: 81001; 87088; 96372; 99283; J0696